=== PATIENT | male | born 1975 | race Caucasian/White ===

== ENCOUNTER 2018-12-08 10:41 | Inpatient (IN) | payer MEDICAID, SELFPAY ==
[2018-12-08 10:46] VITALS: BP 166/91; PULSE 73; RESP 20; TEMP 36.5; O2SAT 99
--- NOTE | 2018-12-08 11:19 | ED.GENADUL_ITS ---
Discharge Plan Disposition Patient Disposition: [facility] INPATIENT Condition: Stable Discharge Details Chief Complaint: Abd Prob Clinical Impression: Acute pancreatitis Admit Date/Time: 12/08/18 14:43 Admit Provider: Bernardo Morejon Attending Provider: Bernardo Morejon Primary Care Provider: Kaushal Schmidt ED Provider: Olga Hart Discharge Data Discharge Date/Time-TO BE ENTERED AT DEPARTURE: 12/08/18 15:48 Medical Decision Making 1120 -- 43-year-old male w/ a history of diabetes who presents with vomiting twice this week, one episode with bright red blood, dark brown stools, and diffuse abdominal pain worse in the epigastrium for the past few days. Smokes marijuana daily. Denies alcohol use. Does not check his sugar at home. Vitals within normal limits. Afebrile. Patient appears nontoxic. He has diffuse mild abdominal tenderness, worse in epigastrium. As patient only vomited blood once this week several days ago, I am not concerned about a significant acute GI bleed. His rectal exam noted brown stool that was Hemoccult negative. Differential diagnosis includes gastritis, GERD, peptic ulcer disease, pancreatitis, cholecystitis, biliary colic. Will place an IV, bolus IV fluids, labs, urinalysis and give a GI cocktail and Pepcid and reassess. Will hold on imaging at this time until reassessment and lab results. 1220 -- Delay in pt receiving meds - busy in ED - nurse will give meds now. Labs reviewed and note normal white blood cell count, electrolytes. Glucose 192. Normal bicarb and anion gap. Lipase 605. Urinalysis notes small blood but no obvious infection. Due to elevated lipase, will obtain a CT abdomen/pelvis to rule out pancreatitis. We will also obtain a limited abdominal ultrasound to assess for cholecystitis. 1415 -- imaging reviewed and unremarkable. Due to elevated lipase, will admit overnight for recheck of lipase, fluids and pain meds if needed. Patient is agreeable to admission. 1420 -- d/w hospitalist - accepts pt for admission. Medical Records Medical records reviewed: Yes I reviewed the patient's medical records. Lab Data Laboratory Tests Range/Units 12/08/18 12/08/18 12/08/18 11:10 11:10 11:24 WBC (4.4-10.8) k/cumm 8.12 RBC (4.50-6.00) m/cumm 4.93 Hgb (13.5-17.5) g/dL 14.4 Hct (40.0-50.0) % 41.4 MCV (80-95) fL 84.0 MCH (27.0-33.0) pg 29.2 MCHC (32.0-36.0) g/dL 34.8 RDW (11.8-14.1) % 12.7 Plt Count (130-400) x1000/uL 254 MPV (8.0-11.0) fL 9.9 Immature Gran % 0.2 Neutrophils % 57.2 Lymphocytes % 33.3 Monocytes % 8.1 Eosinophils % 0.7 Basophils % 0.5 Absolute Neutrophils (1.2-6.7) k/cumm 4.64 Absolute Lymphocytes (1.2-3.4) k/cumm 2.70 Absolute Monocytes (0.11-0.7) k/cumm 0.66 Absolute Eosinophils (0.0-0.7) k/cumm 0.06 Absolute Basophils (0.0-0.2) k/cumm 0.04 Sodium (136-145) mmol/L 139 Potassium (3.5-5.1) mmol/L 4.6 Chloride (98-107) mmol/L 102 Carbon Dioxide (21.0-32.0) mmol/L 27.8 Anion Gap (3-11) mmol/L 9.2 BUN (7-18) mg/dL 22 H Creatinine (0.70-1.30) mg/dL 1.03 Estimated GFR/1.73 m2 (mL/min/1.73m2) >= 60.00 Glucose (70-100) mg/dL 192 H Calcium (8.5-10.1) mg/dL 9.3 Total Bilirubin (0.2-1.0) mg/dL 0.3 AST (15-37) U/L 30 ALT (12-78) U/L 42 Alkaline Phosphatase (46-116) U/L 85 Total Protein (6.4-8.2) g/dL 7.6 Albumin (3.4-5.0) g/dL 3.9 Lipase (73-393) U/L 605 H Urine Color (Yellow) Yellow Urine Clarity Clear Urine pH (5-8) 5.5 Ur Specific [place] (1.005-1.025) 1.020 Urine Protein (Negative) mg/dL 30 H Urine Ketones (Negative) mg/dL Negative Urine Blood (Negative) Small H Urine Nitrite (Negative) Negative Urine Bilirubin (Negative) Negative Urine Urobilinogen (Up TO 0.2) EU/dL 0.2 Ur Leukocyte Esterase (Negative) Negative Urine RBC (0-2) 0-2 Urine WBC (0-5) HPF Negative Ur Epithelial Cells (Negative) HPF Negative Urine Crystals (Negative) HPF Negative Urine Bacteria (Negative) HPF Rare Urine Casts (Negative) LPF Negative Urine Mucus (Negative) Negative Ur Culture Indicated? No Urine Glucose (Negative) mg/dL Negative HPI General Mode of arrival: ambulatory . Date/Time Provider Initiated Documentation: 12/08/18 10:46 . Limitations to Documentation: no limitations . Information obtained by: patient . HPI Narrative: Patient is a 43-year-old male with history of diabetes who presents with 2 episodes of vomiting this week. He states the first episode a few days ago was vomitus mixed with bright red blood with some clots. He states he then vomited again 2 days later which was 2 days ago and there was no blood. He admits to intermittent loose brown and dark colored stools but states he is unsure if they are dark brown or black. He admits to cold sweats occasionally over the past few days. He also admits to intermittent and worse in the epigastrium sharp and stabbing pain but denies any pain at present. He admits to nausea and decreased appetite. He denies any blood in his stool. He states he traveled to [place] 6 weeks ago but denies any known sick contacts recent antibiotics or recent surgeries. He smokes marijuana daily but does not smoke cigarettes. He denies any alcohol use. He states he takes metformin and glipizide but does not check his sugar regularly. Related Data Home Medications Medication Instructions Recorded Confirmed glipizide 10 mg PO DAILY 07/12/14 12/08/18 metformin [Glucophage] 1,000 mg PO BID 07/12/14 12/26/16 insulin glargine [Lantus Solostar] 10 units SUB-Q HS 12/26/16 12/08/18 Allergies Allergy/AdvReac Type Severity Reaction Status Date / Time No Known Allergies Allergy Unverified 12/26/16 21:53 General Stated Complaint: Abd Prob MARYURI: 3 Review of Systems Review of Systems All systems reviewed & are unremarkable except as noted in HPI and below Constitutional Reports as per HPI, Denies chills and Denies fever(s) Eyes Denies blurry vision ENT Denies dizziness, Denies sore throat and Denies throat swelling Cardiovascular Denies chest pain and Denies dyspnea Respiratory Denies cough and Denies dyspnea Gastrointestinal Reports abdominal pain, Denies diarrhea and Reports vomiting Genitourinary Denies hematuria and Denies dysuria Musculoskeletal Denies back pain and Denies numbness Integumentary/Breasts Denies lesions and Denies rash Neurologic Denies dizziness, Denies focal weakness and Denies numbness Allergic/Immunologic Denies throat swelling PFSH Medical History Diabetes (Chronic) Surgical History History of dental surgery (Acute) H/O elbow surgery (Acute) Social History Smoking/Tobacco Use Status: Never Alcohol Intake: never Drug use: Daily Substance use type: marijuana Do you feel safe at home: Yes Do you feel safe in your relationship?: Yes Exam Const General: cooperative, healthy appearing and no acute distress HENMT Head: normal to inspection Face and sinus: normal facial exam Eyes General: appearance normal, both eyes and all related structures EOM: EOM intact bilaterally Neck Neck: normal visual inspection and No submandibular swelling Lymphatic: no lymphadenopathy noted Chest Chest: normal inspection of the chest and no tenderness Resp Effort & Inspection: normal respiratory effort and able to speak in complete sentences Auscultation: clear to auscultation bilaterally Cardio Rate: regular rate Rhythm: regular rhythm GI Inspection: normal to inspection Palpation: soft, not firm, not rigid and nontender Auscultation: normal bowel sounds Rectal Exam: visual inspection normal, normal sphincter tone and heme negative stool (stool brown in color) Skin General skin exam: no rashes or lesions noted Neuro General: alert, awake and oriented x3 Cognition: normal cognition Speech: speech normal Motor: muscle tone normal throughout Sensory Exam: no sensory deficits noted Extrem General: normal to inspection, full ROM and no edema Psych Appearance: grossly normal Mental Status: mental status grossly normal Speech and Movement: speech and movement normal Affect: normal affect Course Vital Signs Temperature 97.7 F 12/08/18 10:46 Pulse 73 12/08/18 10:46 Respiratory Rate 20 12/08/18 10:46 Blood Pressure 166/91 H 12/08/18 10:46 Pulse Oximetry 99 12/08/18 10:46 Temperature 97.7 F 12/08/18 10:46 Pulse 73 12/08/18 10:46 Respiratory Rate 20 12/08/18 10:46 Respiratory Effort Non-Labored 12/08/18 10:52 Blood Pressure 166/91 H 12/08/18 10:46 Blood Pressure Position Supine 12/08/18 10:46 Pulse Oximetry 99 12/08/18 10:46 Oxygen Delivery Method Room Air 12/08/18 10:46 Oxygen Flow Rate 0 12/08/18 10:46 Pain Level 2 12/08/18 10:46
[2018-12-08 11:53] LABS: Bilirubin Negative (Negative); Blood Small (Negative); Clarity Clear; Glucose Negative (Negative); Ketones Negative (Negative); Leukocyte Esterase Negative (Negative); Nitrite Negative (Negative); Urobilinogen 0.2 EU/dL (Up TO 0.2); pH 5.5 (5-8)
[2018-12-08 11:58] LABS: Abs Immature Grans 0.02 k/cumm (0.0-0.09); Absolute Basophil Count 0.04 k/cumm (0.0-0.2); Absolute Eosinophil Count 0.06 k/cumm (0.0-0.7); Absolute Monocyte Count 0.66 k/cumm (0.11-0.7); Absolute Neutrophil Count 4.64 k/cumm (1.2-6.7); Basophils % 0.5; Eosinophils % 0.7; HCT 41.4 % (40.0-50.0); HGB 14.4 g/dL (13.5-17.5); Immature Grans % 0.2; Lymphocytes % 33.3; Mean Corp. HGB Concentration 34.8 g/dL (32.0-36.0); Mean Corpuscular Hemoglobin 29.2 pg (27.0-33.0); Mean Platelet Volume 9.9 fL (8.0-11.0); Monocytes % 8.1; Neutrophils % 57.2; Platelet Count 254 x1000/uL (130-400); RBC 4.93 m/cumm (4.50-6.00); RBC Distribution Width 12.7 % (11.8-14.1); White Blood Cell Count 8.12 k/cumm (4.4-10.8)
[2018-12-08 12:08] LABS: Bacteria Rare HPF (Negative); C & S Indicated? No; Casts Negative LPF (Negative); Crystals Negative HPF (Negative); Epithelial Cells Negative HPF (Negative); Mucus Negative (Negative); RBC 0-2 (0-2); WBC Negative HPF (0-5)
[2018-12-08 12:19] LABS: ALT 42 U/L (12-78); AST 30 U/L (15-37); Albumin 3.9 g/dL (3.4-5.0); Alkaline Phosphatase 85 U/L (46-116); Anion Gap 9.2 mmol/L (3-11); BUN 22 mg/dL (7-18); Bilirubin, Total 0.3 mg/dL (0.2-1.0); CO2 27.8 mmol/L (21.0-32.0); CREATININE 1.03 mg/dL (0.70-1.30); Calcium 9.3 mg/dL (8.5-10.1); Chloride 102 mmol/L (98-107); Glucose 192 mg/dL (70-100); Lipase 605 U/L (73-393); Potassium 4.6 mmol/L (3.5-5.1); Sodium 139 mmol/L (136-145); Total Protein 7.6 g/dL (6.4-8.2)
--- NOTE | 2018-12-08 12:21 | DI.US_ITS ---
SYMPTOMS/DIAGNOSIS: RIGHT UPPER QUADRANT TENDERNESS, ? CHOLECYSTITIS LIMITED ABDOMINAL ULTRASOUND: The gallbladder is normal. There is no evidence of gallstones. There is no evidence of ductal dilatation. The head of the pancreas appears intact. The body and tail are not seen. SUMMARY: There is no evidence of gallstones or biliary dilatation. The head of the pancreas is acoustically normal and there is no evidence of free fluid.
--- NOTE | 2018-12-08 12:21 | DI.CT_ITS ---
SYMPTOM/DIAGNOSIS: EPIGASTRIC PAIN, ELEVATED LIPASE, ? PANCREATITIS ABDOMEN AND PELVIC CT: A CT examination of the abdomen and pelvis was performed following the intravenous infusion of 84 cc's of Omnipaque 350 and the ingestion of oral contrast. The liver and spleen are normal in size and shape with no evidence of any focal defects. There is no evidence of biliary dilatation. The gallbladder has a normal CT appearance. The pancreas appears intact and is not enlarged. There is no evidence of retroperitoneal lymphadenopathy. The bladder appears intact. The kidneys show bilateral function and there is no evidence of a renal mass. The vascular structures appear intact. There is no evidence of a mass in the pelvis. There is no evidence of a fluid collection or adenopathy. CONCLUSION: Normal abdominal and pelvic CT.
[2018-12-08] MEDS: Normal Saline 1,000 ML 1000 ML IV ×2 (12:37→15:44)
[2018-12-08] MEDS: FAMOTIDINE 20 MG/50 ML BAG 200 MG IVPB (12:37)
[2018-12-08 12:42] VITALS: BP 144/86; PULSE 67; RESP 18; TEMP 36.5; O2SAT 100
--- NOTE | 2018-12-08 13:15 | NUR.NOTE ---
Nursing Note: Pt off unit to CT. no acute changes, will continue to monitor.
[2018-12-08] MEDS: Omnipaque 350 MG/ML 100 ML BTL IJ (13:28)
[2018-12-08 14:25] VITALS: BP 159/79; PULSE 86; RESP 18; TEMP 36.7; O2SAT 98
[2018-12-08] MEDS: Normal Saline 1,000 ML 200 ML IV ×2 (16:25→21:25)
--- NOTE | 2018-12-08 16:50 | HPE_ITS ---
Date of service: 12/08/18 Time of Service: 16:41 Assessment and Plan (1) Pancreatitis: Current visit: Yes Status: Chronic Versus gastritis. Lipase elevated to 605. Abdominal CT not read by radiology yet. Abdominal ultrasound does not show evidence of gallstones or biliary dilatation. The head of the pancreas is acoustically normal and there is no evidence of free fluid. He has mild epigastric discomfort. He reported that he may have a history of hyperlipidemia, review of the record does not show history of high triglycerides. Assess lipid panel in the morning. Initiate PPI for possible gastritis. Reassess lipase in the morning. We will allow clear liquids as tolerated as he is asking for something to eat. Avoid opiates as his pain is mild. (2) Diabetes: Current visit: Yes Status: Chronic No recent Hgb A1c on his chart, has been high in the past (most recent- 9. 2 in 2014). Assess Hgb A1c in the morning. Monitor blood glucose before meals, cover with sliding scale. (3) DVT prophylaxis: Current visit: Yes Status: Acute Hold chemical DVT prophylaxis in this 43-year-old ambulatory man. If he is not discharged within the next 24 hours, consider adding chemical DVT prophylaxis. This case was discussed with Dr. Morejon who is in agreement. History of Present Illness Chief Complaint: Epigastric pain Narrative: Aldo is a 43-year-old man with a history of type 2 diabetes, insulin-dependent, who presented to the emergency department today with reports of vomiting twice in the last week. One week ago he vomited and noticed there was blood in his vomit as well as clots. He also reported dark stools and increasing epigastric discomfort as well as GERD. In the emergency department, his labs revealed a normal white blood cell count, electrolyte are within normal limits, his glucose is elevated at 192, his lipase was elevated at 605, urinalysis was not suspicious for infection. He had an abdominal CT which is not yet been read. He had an abdominal ultrasound which did not show gallstones or biliary dilatation. He is admitted to the [facility] floor for acute pancreatitis. Upon presenting to the [facility] floor, he is asking for something to eat. We discussed how oral intake increases pain with pancreatitis and that if he had increased pain he would have to stop taking in anything orally. He was agreeable to this plan. He will receive a trial of clear liquids as tolerated. Review of system was positive as above for vomiting with blood noted in his emesis 1 week ago, he believes he had dark stools, he does endorse epigastric discomfort today, he has been having heartburn recently, he also reports a chronic cough. He denies any dizziness, shortness of breath, wheezing, chest pain/pressure, palpitations, nausea, vomiting today, or diarrhea. He reports that he has been able to eat up until his admission to the hospital. He reports occasional leg cramps at night, no current leg cramps. Review of Systems Review of Systems All systems reviewed & are unremarkable except as noted in HPI and below PFSH Medical History Diabetes (Chronic) Surgical History History of dental surgery (Acute) H/O elbow surgery (Acute) Social History Smoking/Tobacco Use Status: Never Alcohol Intake: never Drug use: Daily Substance use type: marijuana Do you feel safe at home: Yes Do you feel safe in your relationship?: Yes Meds Home Medications Medication Instructions Recorded Confirmed Type glipizide 10 mg PO DAILY 07/12/14 12/08/18 History metformin [Glucophage] 1,000 mg PO BID 07/12/14 12/26/16 History insulin glargine [Lantus Solostar] 10 units SUB-Q HS 12/26/16 12/08/18 History Allergies Allergy/AdvReac Type Severity Reaction Status Date / Time No Known Allergies Allergy Unverified 12/26/16 21:53 Exam Narrative Exam Narrative: General: Well-appearing 43-year-old man, sitting up at the edge of the bed, in no acute distress, conversant, answering questions appropriately. HEENT: Normocephalic, atraumatic, mucous membranes moist. Neck: Supple, no JVD. Respiratory: Respirations even and unlabored, lung sounds clear to auscultation throughout. Cardiovascular: Heart has regular rate and rhythm, no murmur appreciated. Gastrointestinal: Normoactive bowel sounds, mild tenderness to epigastric region and left upper abdomen on palpation. Abdomen is nondistended. Extremities: Well perfused, no clubbing, cyanosis or edema. Results Labs : 12/08/18 11:10 12/08/18 11:10 Laboratory Results - last 24 hr 12/08/18 12/08/18 12/08/18 11:10 11:10 11:24 WBC 8.12 RBC 4.93 Hgb 14.4 Hct 41.4 MCV 84.0 MCH 29.2 MCHC 34.8 RDW 12.7 Plt Count 254 MPV 9.9 Immature Gran % 0.2 Neutrophils % 57.2 Lymphocytes % 33.3 Monocytes % 8.1 Eosinophils % 0.7 Basophils % 0.5 Absolute Neutrophils 4.64 Absolute Lymphocytes 2.70 Absolute Monocytes 0.66 Absolute Eosinophils 0.06 Absolute Basophils 0.04 Sodium 139 Potassium 4.6 Chloride 102 Carbon Dioxide 27.8 Anion Gap 9.2 BUN 22 H Creatinine 1.03 Estimated GFR/1.73 m2 >= 60.00 Glucose 192 H Calcium 9.3 Total Bilirubin 0.3 AST 30 ALT 42 Alkaline Phosphatase 85 Total Protein 7.6 Albumin 3.9 Lipase 605 H Urine Color Yellow Urine Clarity Clear Urine pH 5.5 Ur Specific [place] 1.020 Urine Protein 30 H Urine Ketones Negative Urine Blood Small H Urine Nitrite Negative Urine Bilirubin Negative Urine Urobilinogen 0.2 Ur Leukocyte Esterase Negative Urine RBC 0-2 Urine WBC Negative Ur Epithelial Cells Negative Urine Crystals Negative Urine Bacteria Rare Urine Casts Negative Urine Mucus Negative Ur Culture Indicated? No Urine Glucose Negative Last Vital Signs Temp 36.7 C 12/08/18 14:25 Pulse 86 12/08/18 14:25 Resp 18 12/08/18 14:25 BP 159/79 H 12/08/18 14:25 Pulse Ox 98 12/08/18 14:25
[2018-12-08 16:52] VITALS: BP 163/99; PULSE 81; RESP 19; TEMP 36.1; O2SAT 98
[2018-12-08] MEDS: Normal Saline Flush 10 ML SYR IVP (20:07)
[2018-12-08] MEDS: Insulin Aspart 300 UNITS/3 ML PEN SC (21:31)
[2018-12-09 00:04] VITALS: BP 150/82; PULSE 92; RESP 18; TEMP 36.5; O2SAT 99
[2018-12-09] MEDS: Normal Saline 1,000 ML 200 ML IV ×5 (02:03→23:21)
[2018-12-09 03:20] VITALS: BP 137/87; PULSE 72; RESP 16; TEMP 36.9; O2SAT 100
[2018-12-09 07:03] LABS: HCT 37.3 % (40.0-50.0); HGB 12.9 g/dL (13.5-17.5); Mean Corp. HGB Concentration 34.6 g/dL (32.0-36.0); Mean Corpuscular Hemoglobin 29.2 pg (27.0-33.0); Mean Corpuscular Volume 84.4 fL (80-95); Mean Platelet Volume 9.7 fL (8.0-11.0); Platelet Count 231 x1000/uL (130-400); RBC 4.42 m/cumm (4.50-6.00); RBC Distribution Width 12.5 % (11.8-14.1); White Blood Cell Count 6.16 k/cumm (4.4-10.8)
[2018-12-09 07:27] LABS: ALT 32 U/L (12-78); AST 21 U/L (15-37); Albumin 2.9 g/dL (3.4-5.0); Alkaline Phosphatase 69 U/L (46-116); Anion Gap 5.6 mmol/L (3-11); BUN 10 mg/dL (7-18); Bilirubin, Total 0.5 mg/dL (0.2-1.0); CO2 29.4 mmol/L (21.0-32.0); CREATININE 0.91 mg/dL (0.70-1.30); Calcium 7.9 mg/dL (8.5-10.1); Chloride 107 mmol/L (98-107); Cholesterol 133 mg/dL (50-200); Glucose 178 mg/dL (70-100); HDL Cholesterol 33 mg/dL (40-60); LDL CHOLESTEROL 83 mg/dL (<100); Potassium 4.2 mmol/L (3.5-5.1); Sodium 142 mmol/L (136-145); Total Protein 5.8 g/dL (6.4-8.2); Triglyceride 140 mg/dL (30-150)
[2018-12-09 07:40] VITALS: BP 145/87; PULSE 79; RESP 18; TEMP 36.4; O2SAT 99
[2018-12-09 07:43] LABS: Hemoglobin A1C 7.6 % (4.5-6.2)
[2018-12-09 07:57] LABS: Lipase 2832 U/L (73-393)
[2018-12-09] MEDS: Normal Saline Flush 10 ML SYR IVP (08:47)
[2018-12-09] MEDS: Insulin Aspart 300 UNITS/3 ML PEN SC ×3 (08:48→23:20)
[2018-12-09] MEDS: Acetaminophen 325 MG TAB PO (08:57)
--- NOTE | 2018-12-09 10:26 | PHARADMIT ---
Addendum entered by Leda Tobar 12/12/18 15:13: Pharmacy Note Subjective HIDA scan today Objective BP-154/91 other VS okay K+3.3 mag-1.6 lipase improved Assessment insulin glargine dose decreased (pt. NPO after midnight) lisinopril ordered to start tomorrow, 2.5 mg daily glipizide discontinued due to pancreatitis mag and K+ replacement given Plan EGD tomorrow Addendum entered by Ramona Zepeda 12/11/18 12:22: Pharmacy Note Subjective wants to go home, one episode of nausea overnight Objective BP 188/96, Afebrile, Mid/left sided back pain 10/16 BG 161 Assessment lytes good but borderline K+ and Mag no insulin adjustments APAP & Ketorolac for pain not tracking lipase Plan clear liquid diet, surgery consult for Wednesday w/HIDA scan Original Note: Admission Pharmacy Clinical Review ACUTE PANCREATITIS Code Status Full Code Current Weight Wgt-59 kg Renally Cleared and Narrow Therapeutic Index Meds CrCl~84 mL/min Meds-OK QTc Value / Action Taken QTc-455 (in 09/2018) Pepcid, Nexium BP Control, Fever BP-145/87 Tmax- 36.4C Electrolytes reviewed Na- 142 K+4.2 DVT Prophylaxis None (? Surgery) Opiate Usage / Scheduled Bowel Regimen Ordered No Yes Plt/SCr for Heparin / Enoxaparin Plts-231 SCr- 0.91 INR for Warfarin na H/H stable, WBC/Bands H&H- 12.9/37.3 WBC- 6.16 Antibiotic appropriateness none Cultures and Sensitivities none Surgical ABX d/c within 24 hr NA DM control / Insulin Dosing BG-178 HgA1c- 7.6 Aspart Heart Failure (Check EF%) (MAGALI's, B-Block, Diuretics) none IV to PO Switch No Home Meds Reviewed Yes Home Meds Not Ordered Metformin, Glipizide, Lantus Comments Lipase-2,832
--- NOTE | 2018-12-09 11:19 | PDOC.CMIN ---
- If Service Date Differs Date of service: 12/09/18 (\) Time of Service: 11:19 Care Management Initial Assess REASON FOR HOSPITALIZATION:: Pancreatitis PAST MEDICAL HISTORY/PAST SURGICAL HISTORY:: DM PREVIOUS FUNCTIONAL STATUS/SOCIAL/FAMILY SUPPORTS:: Aldo lives in [place], [place] with his SO Janelle and his son Shoaib velasco. 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 He has two other children that are grown. Shoaib is a DM he states he does not manage his DM well and he does not check his blood sugar. CURRENT FUNCTIONAL STATUS:: Shoaib is sitting up on the side of the bed he is engaged during assessment. He states that he does not control his blood sugar well. He states that he would like be able to gain weight and muscle. He feels that he is not strong like he has been in the past and is asking if she take steroids to bulk up. CM provided education r/t risk of steroid use and DM management including risk of elevated blood sugar and risk of microvascular damage. Shoaib has no interest in applying for insurance at this time. He states he is not applying for any assistance through the state that he makes to much money. ADVANCE DIRECTIVES:: None on file Has patient been provided with information about the portal?: Yes Did the patient sign up for the portal?: No CODE STATUS:: Full Code INSURANCE COVERAGE / FINANCIAL ISSUES:: Self Pay declines completing applicaiton for insurance and does not want to apply for finanical assistance. CURRENT HOME/COMMUNITY SERVICES/EQUIPMENT:: None at this time PRIMARY CARE PHYSICIAN:: POTENTIAL DISCHARGE NEEDS:: Follow up appointment with primary care and DM educator PATIENT/FAMILY EDUCATION NEEDS:: Discharge education, limitations and follow up plan of care including ask me three. CM provided extensive education DM management and treatment. Patient states this is the year he will begin to take care of himself. ANTICIPATED BARRIERS TO DISCHARGE:: None identified TRANSPORTATION:: Via private car with spouse. PLAN:: Shoaib is currently receiving fluids, he is tolerating clear liquids. He will likely be discharged home over the weekend with no anticipated services.
[2018-12-09 11:40] VITALS: BP 106/82; PULSE 72; RESP 18; TEMP 36.5; O2SAT 98
--- NOTE | 2018-12-09 12:04 | INITIAL_ITS ---
- If Service Date Differs Date of service: 12/09/18 (\) Time of Service: 11:19 Care Management Initial Assess REASON FOR HOSPITALIZATION:: Pancreatitis PAST MEDICAL HISTORY/PAST SURGICAL HISTORY:: DM PREVIOUS FUNCTIONAL STATUS/SOCIAL/FAMILY SUPPORTS:: Aldo lives in [place], [place] with his SO Janelle and his son Shoaib velasco. 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 He has two other children that are grown. Shoaib is a DM he states he does not manage his DM well and he does not check his blood sugar. CURRENT FUNCTIONAL STATUS:: Shoaib is sitting up on the side of the bed he is engaged during assessment. He states that he does not control his blood sugar well. He states that he would like be able to gain weight and muscle. He feels that he is not strong like he has been in the past and is asking if she take steroids to bulk up. CM provided education r/t risk of steroid use and DM management including risk of elevated blood sugar and risk of microvascular damage. Shoaib has no interest in applying for insurance at this time. He states he is not applying for any assistance through the state that he makes to much money. ADVANCE DIRECTIVES:: None on file Has patient been provided with information about the portal?: Yes Did the patient sign up for the portal?: No CODE STATUS:: Full Code INSURANCE COVERAGE / FINANCIAL ISSUES:: Self Pay declines completing applicaiton for insurance and does not want to apply for finanical assistance. CURRENT HOME/COMMUNITY SERVICES/EQUIPMENT:: None at this time PRIMARY CARE PHYSICIAN:: POTENTIAL DISCHARGE NEEDS:: Follow up appointment with primary care and DM educator PATIENT/FAMILY EDUCATION NEEDS:: Discharge education, limitations and follow up plan of care including ask me three. CM provided extensive education DM management and treatment. Patient states this is the year he will begin to take care of himself. ANTICIPATED BARRIERS TO DISCHARGE:: None identified TRANSPORTATION:: Via private car with spouse. PLAN:: Shoaib is currently receiving fluids, he is tolerating clear liquids. He will likely be discharged home over the weekend with no anticipated services.
--- NOTE | 2018-12-09 14:40 | W.PM.PROGNOT ---
Date of Service Date of service: 12/09/18 Time of Service: 14:41 Assessment and Plan (1) Pancreatitis: Current visit: Yes Status: Chronic Lipase is up today to 2832, from 605 on admission. He continues to have abdominal pain. Abdominal ultrasound does not show evidence of gallstones or biliary dilatation. The head of the pancreas is acoustically normal and there is no evidence of free fluid. CT abdomen and pelvis normal, the pancreas appeared intact and not enlarged. He is tolerating clear liquids, continue clear liquid diet. Continue PPI, pain control, IV fluids. (2) Diabetes: Current visit: Yes Status: Chronic His hemoglobin A1c is 7.6. We will resume Lantus at decreased dose as he is taking clear liquids. Continue to monitor blood glucose at before meals and at bedtime, continue aspart per sliding scale. He did have a low blood sugar overnight, continue on sensitive scale. Continue glipizide. Hold metformin while hospitalized. (3) Anxiety: Current visit: Yes Status: Chronic PRN Ativan for anxiety while in the hospital. Melatonin at bedtime. (4) DVT prophylaxis: Current visit: Yes Status: Acute Hold chemical DVT prophylaxis in this 43-year-old ambulatory man. If he is not discharged within the next 24 hours, consider adding chemical DVT prophylaxis. This case was discussed with Dr. Morejon who is in agreement. Subjective Interval history since last seen: Shoaib continues to have mid epigastric pain that extends to the left side of his abdomen and through to his back. He does not necessarily feel nauseated at the present time, he has not vomited, he did have a small bowel movement today. He is taking clear liquids, he has not had an increase in pain with clear liquids, he feels like his pain is about the same. He is not ready to advance his diet. He feels anxious at times, he feels that this is related to not having his regular marijuana intake. He did not sleep well last night. He denies dizziness, shortness of breath, wheezing, chest pain/pressure, palpitations, no diarrhea. Exam Narrative Exam Narrative: General: Well-appearing 43-year-old man, sitting up at the edge of the bed, in no acute distress, conversant, answering questions appropriately. HEENT: Normocephalic, atraumatic, mucous membranes moist. Pupils equal and round Neck: Supple, no JVD. Respiratory: Respirations even and unlabored, lung sounds with few scattered wheezes bilaterally. Cardiovascular: Heart has regular rate and rhythm, no murmur appreciated. Gastrointestinal: Normoactive bowel sounds, mild tenderness to epigastric region and left upper abdomen on palpation. Abdomen is nondistended. Extremities: Well perfused, no clubbing, cyanosis or edema. Objective Objective Clinical Data: Abnormal lab results 12/09/18 12/09/18 12/09/18 Range/Units 06:34 06:34 06:34 RBC 4.42 L (4.50-6.00) m/cumm Hgb 12.9 L (13.5-17.5) g/dL Hct 37.3 L (40.0-50.0) % Glucose 178 H (70-100) mg/dL Hemoglobin A1c 7.6 H (4.5-6.2) % Calcium 7.9 L (8.5-10.1) mg/dL Total Protein 5.8 L (6.4-8.2) g/dL Albumin 2.9 L (3.4-5.0) g/dL HDL Cholesterol 33 L (40-60) mg/dL Lipase 2832 H (73-393) U/L Vital Signs Temperature 36.5 C 12/09/18 11:40 Temperature Source Tympanic 12/09/18 11:40 Pulse 72 12/09/18 11:40 Pulse Rhythm Regular 12/09/18 13:43 Respiratory Rate 18 12/09/18 11:40 Respiratory Effort 12/09/18 13:43 Respiratory Depth Normal 12/09/18 13:43 Respiratory Pattern Normal 12/09/18 13:43 Blood Pressure 106/82 12/09/18 11:40 Blood Pressure Position Supine 12/08/18 10:46 Pulse Oximetry 98 12/09/18 11:40 Oxygen Delivery Method Room Air 12/09/18 11:40 Oxygen Flow Rate 0 12/09/18 11:40 Pain Level 7 12/09/18 08:57 Comment 12/09/18 03:20 Intake & Output 12/08/18 12/09/18 12/09/18 23:59 11:59 23:59 Intake Total 3260 / 3260 3516.667 / 3516.667 Output Total 1100 / 1100 Balance 3260 / 3260 2416.667 / 2416.667 Weight 59 kg Intake: IV 3050 / 3050 2896.667 / 2896.667 Oral 210 / 210 620 / 620 Output: Urine 1100 / 1100 Other: Urine Color Yellow Urine Appearance Clear Clear Clear Urine Odor Normal Comment pt stated he voided 800 ml in the hat and dumped it. Pt stated the color was normal yellow with no bad smell. Pt was asked to notify staff when he voided agian before dumping it. Voiding Methods Toilet Laboratory Results WBC 6.16 k/cumm (4.4-10.8) 12/09/18 06:34 RBC 4.42 m/cumm (4.50-6.00) L 12/09/18 06:34 Hgb 12.9 g/dL (13.5-17.5) L 12/09/18 06:34 Hct 37.3 % (40.0-50.0) L 12/09/18 06:34 MCV 84.4 fL (80-95) 12/09/18 06:34 MCH 29.2 pg (27.0-33.0) 12/09/18 06:34 MCHC 34.6 g/dL (32.0-36.0) 12/09/18 06:34 RDW 12.5 % (11.8-14.1) 12/09/18 06:34 Plt Count 231 x1000/uL (130-400) 12/09/18 06:34 MPV 9.7 fL (8.0-11.0) 12/09/18 06:34 Immature Gran % 0.2 12/08/18 11:10 Neutrophils % 57.2 12/08/18 11:10 Lymphocytes % 33.3 12/08/18 11:10 Monocytes % 8.1 12/08/18 11:10 Eosinophils % 0.7 12/08/18 11:10 Basophils % 0.5 12/08/18 11:10 Absolute Neutrophils 4.64 k/cumm (1.2-6.7) 12/08/18 11:10 Absolute Lymphocytes 2.70 k/cumm (1.2-3.4) 12/08/18 11:10 Absolute Monocytes 0.66 k/cumm (0.11-0.7) 12/08/18 11:10 Absolute Eosinophils 0.06 k/cumm (0.0-0.7) 12/08/18 11:10 Absolute Basophils 0.04 k/cumm (0.0-0.2) 12/08/18 11:10 Sodium 142 mmol/L (136-145) 12/09/18 06:34 Potassium 4.2 mmol/L (3.5-5.1) 12/09/18 06:34 Chloride 107 mmol/L (98-107) 12/09/18 06:34 Carbon Dioxide 29.4 mmol/L (21.0-32.0) 12/09/18 06:34 Anion Gap 5.6 mmol/L (3-11) 12/09/18 06:34 BUN 10 mg/dL (7-18) D 12/09/18 06:34 Creatinine 0.91 mg/dL (0.70-1.30) 12/09/18 06:34 Estimated GFR/1.73 m2 >= 60.00 (mL/min/1.73m2) 12/09/18 06:34 Glucose 178 mg/dL (70-100) H 12/09/18 06:34 Hemoglobin A1c 7.6 % (4.5-6.2) H 12/09/18 06:34 Calcium 7.9 mg/dL (8.5-10.1) L 12/09/18 06:34 Total Bilirubin 0.5 mg/dL (0.2-1.0) 12/09/18 06:34 AST 21 U/L (15-37) 12/09/18 06:34 ALT 32 U/L (12-78) 12/09/18 06:34 Alkaline Phosphatase 69 U/L (46-116) 12/09/18 06:34 Total Protein 5.8 g/dL (6.4-8.2) L 12/09/18 06:34 Albumin 2.9 g/dL (3.4-5.0) L 12/09/18 06:34 Triglycerides 140 mg/dL (30-150) 12/09/18 06:34 Total Cholesterol 133 mg/dL (50-200) 12/09/18 06:34 LDL Cholesterol Direct 83 mg/dL (<100) 12/09/18 06:34 HDL Cholesterol 33 mg/dL (40-60) L 12/09/18 06:34 Lipase 2832 U/L (73-393) H 12/09/18 06:34 Urine Color Yellow (Yellow) 12/08/18 11:24 Urine Clarity Clear 12/08/18 11:24 Urine pH 5.5 (5-8) 12/08/18 11:24 Ur Specific [place] 1.020 (1.005-1.025) 12/08/18 11:24 Urine Protein 30 mg/dL (Negative) H 12/08/18 11:24 Urine Ketones Negative mg/dL (Negative) 12/08/18 11:24 Urine Blood Small (Negative) H 12/08/18 11:24 Urine Nitrite Negative (Negative) 12/08/18 11:24 Urine Bilirubin Negative (Negative) 12/08/18 11:24 Urine Urobilinogen 0.2 EU/dL (Up TO 0.2) 12/08/18 11:24 Ur Leukocyte Esterase Negative (Negative) 12/08/18 11:24 Urine RBC 0-2 (0-2) 12/08/18 11:24 Urine WBC Negative HPF (0-5) 12/08/18 11:24 Ur Epithelial Cells Negative HPF (Negative) 12/08/18 11:24 Urine Crystals Negative HPF (Negative) 12/08/18 11:24 Urine Bacteria Rare HPF (Negative) 12/08/18 11:24 Urine Casts Negative LPF (Negative) 12/08/18 11:24 Urine Mucus Negative (Negative) 12/08/18 11:24 Ur Culture Indicated? No 12/08/18 11:24 Urine Glucose Negative mg/dL (Negative) 12/08/18 11:24
[2018-12-09] MEDS: LORazepam 0.5 MG TAB PO (14:48)
--- NOTE | 2018-12-09 15:39 | NUR.NOTE ---
Nursing Note: Patient presents with increased anxiety after lunch, contact provider who puts in order for lorazepam, this is given with a positive effect
[2018-12-09 15:58] VITALS: BP 147/80; PULSE 82; RESP 17; TEMP 36.9; O2SAT 97
[2018-12-09 20:36] VITALS: BP 146/80; PULSE 78; RESP 17; TEMP 37; O2SAT 98
[2018-12-09] MEDS: Insulin Glargine 300 UNITS/3 ML PEN 6 UNITS SC (23:19)
[2018-12-10] VITALS (8 sets, daily range): BP systolic 140–170; BP diastolic 72–94; PULSE 62–80; RESP 17–20; TEMP 36–37.1; O2SAT 97–100
[2018-12-10] MEDS: Normal Saline 1,000 ML 200 ML IV ×5 (03:21→23:30)
[2018-12-10] MEDS: glipiZIDE 10 MG TAB PO (09:18)
[2018-12-10] MEDS: Insulin Aspart 300 UNITS/3 ML PEN SC ×3 (09:19→22:14)
[2018-12-10] MEDS: Normal Saline Flush 10 ML SYR IVP ×2 (09:19→19:38)
--- NOTE | 2018-12-10 10:42 | W.INDIABCONS ---
Date of service: 12/10/18 Time of Service: 10:42 Diabetes Inpatient Consult DESCRIPTION/ASSESSMENT: Appreciate diabetes consult for Mr. Martinez who is hospitalized with pancreatitis. BMI 22 A1c 7.6 down from an initial A1c of 11 in 2010. Blood sugars here 60-392 taking 6u glargine and sensitive insulin correction. BLood sugars vary widely in short period of time, and without documentation of carbohydrate intake. His home medication regimen includes 10u glargine once a day; glipizide and metformin. Attempted to visit today but he was unavailable thus unable to assess his home nutrition and medication adherence. INTERVENTION: Mr. Martinez appears exquisitely sensitive to insulin and carbohydrate. Given his normal BMI and apparent lack of insulin resistance, it is possible he has pancreatic insufficiency which may vary. He may eventually benefit from an insulin:carbohydrate addition of 1 unit for 30 grams carbohydrate to better manage blood sugar excursions. However, without understanding his management at home, suggest we follow blood sugars and document all carbohydrate intake. PLAN: Will follow up visit with him. Suggest documenting all carbohydrate intake to understand cause for glycemic swings Time Spent in Nutritional Counseling and Treatment: 0 minutes face to face inpatient
[2018-12-10 11:23] LABS: Abs Immature Grans 0.01 k/cumm (0.0-0.09); Absolute Basophil Count 0.03 k/cumm (0.0-0.2); Absolute Eosinophil Count 0.08 k/cumm (0.0-0.7); Absolute Lymphocyte Count 2.77 k/cumm (1.2-3.4); Absolute Neutrophil Count 3.12 k/cumm (1.2-6.7); Basophils % 0.5; Eosinophils % 1.2; HGB 12.3 g/dL (13.5-17.5); Immature Grans % 0.2; Lymphocytes % 42.5; Mean Corp. HGB Concentration 35.1 g/dL (32.0-36.0); Mean Corpuscular Hemoglobin 29.5 pg (27.0-33.0); Mean Corpuscular Volume 83.9 fL (80-95); Mean Platelet Volume 9.5 fL (8.0-11.0); Monocytes % 7.7; Neutrophils % 47.9; Platelet Count 215 x1000/uL (130-400); RBC 4.17 m/cumm (4.50-6.00); RBC Distribution Width 12.3 % (11.8-14.1); White Blood Cell Count 6.51 k/cumm (4.4-10.8)
[2018-12-10 11:30] LABS: C-Reactive Protein 0.15 mg/dL (0.0-0.3)
[2018-12-10 11:36] LABS: ALT 28 U/L (12-78); AST 22 U/L (15-37); Albumin 3.1 g/dL (3.4-5.0); Alkaline Phosphatase 67 U/L (46-116); Anion Gap 6.5 mmol/L (3-11); BUN 8 mg/dL (7-18); Bilirubin, Direct 0.11 mg/dL (0.00-0.20); Bilirubin, Total 0.4 mg/dL (0.2-1.0); CO2 28.5 mmol/L (21.0-32.0); CREATININE 1.12 mg/dL (0.70-1.30); Chloride 107 mmol/L (98-107); Glucose 153 mg/dL (70-100); Magnesium 1.8 mg/dL (1.8-2.4); Potassium 3.7 mmol/L (3.5-5.1); Sodium 142 mmol/L (136-145)
--- NOTE | 2018-12-10 14:22 | PGE_ITS ---
Date of Service Date of service: 12/10/18 Time of Service: 14:26 Assessment and Plan (1) Pancreatitis: Start date: 12/10/18 Start time: 14:17 Current visit: Yes Status: Chronic Continues to have pain. CRP was 0.15, triglycerides 140, ast [address] scan with no abnormalities and Abd u/s with no abnormalities. Does describe pain after eating, diet changed to soft if pain continues after eating and to RUQ consider HIDA scan, for possible gallbladder dysmotility if pain persists. (2) Diabetes: Start date: 12/10/18 Start time: 14:23 Current visit: Yes Status: Chronic continue lantus, increased diet to soft for dinner, glucose this am was 153, continue to monitor and increase insulin as needed. (3) Anxiety: Start date: 12/10/18 Start time: 14:25 Current visit: Yes Status: Chronic PRN Ativan for anxiety while in the hospital., is anxious to go home, understands the plan and agreeable at this time. Melatonin at bedtime. (4) DVT prophylaxis: Start date: 12/10/18 Start time: 14:25 Current visit: Yes Status: Acute Hold chemical DVT prophylaxis in this 43-year-old ambulatory man. Subjective Patient reports: no new complaints Interval history since last seen: Mr. Martinez is a 43. y.o. M with PMH of diabetes, admitted from [facility] emergency department for pancreatitis. He denies alcohol use. CT scan revealing for no abnormalities as is the u/s. His lipase did jump from 600's to 2000's and he was admitted for pain. Today he is having pain but less consistent, he woke up this am and stated the pain was lessened in the fact it was tolerable. His CRP was 0.15, triglycerides 140, ast 22 alt 28. When palpating RUQ there is pain and there is also pain in LUQ when palpating. He is unsure if there is increase of pain after eating; his diet is increased to soft, if he has pain we will decrease back to clears. If pain persist consider a HIDA scan for Wednesday in case possible gallbladder dymotility. Exam Const General: cooperative, healthy appearing and no acute distress Orientation: alert, awake and oriented x3 HENMT Head: normal to inspection Chest Chest: normal inspection of the chest Resp Effort & Inspection: normal respiratory effort and able to speak in complete sentences Auscultation: clear to auscultation bilaterally Cardio Jugular venous pressure: no JVD Palpation: normal PMI Rate: regular rate Rhythm: regular rhythm Heart Sounds: S1 normal and S2 normal GI Inspection: normal to inspection Auscultation: hypoactive bowel sounds Skin General skin exam: no rashes or lesions noted Neuro General: alert, awake and oriented x3 Objective Objective Clinical Data: Abnormal lab results 12/10/18 12/10/18 12/10/18 Range/Units 11:15 11:15 11:15 RBC 4.17 L (4.50-6.00) m/cumm Hgb 12.3 L (13.5-17.5) g/dL Hct 35.0 L (40.0-50.0) % Glucose 153 H (70-100) mg/dL Calcium 8.0 L (8.5-10.1) mg/dL Total Protein 6.0 L (6.4-8.2) g/dL Albumin 3.1 L (3.4-5.0) g/dL Vital Signs Temperature 36.5 C 12/10/18 11:20 Temperature Source Tympanic 12/10/18 11:20 Pulse 64 12/10/18 11:20 Pulse Rhythm Regular 12/10/18 11:30 Respiratory Rate 20 12/10/18 11:20 Respiratory Effort 12/10/18 11:30 Respiratory Depth Normal 12/10/18 11:30 Respiratory Pattern Normal 12/10/18 11:30 Blood Pressure 164/94 H 12/10/18 11:20 Blood Pressure Position Supine 12/08/18 10:46 Pulse Oximetry 99 12/10/18 11:20 Oxygen Delivery Method Room Air 12/10/18 11:20 Oxygen Flow Rate 0 12/10/18 11:20 Pain Level 0 12/10/18 11:20 Comment 12/09/18 03:20 Intake & Output 12/09/18 12/10/18 12/10/18 23:59 11:59 23:59 Intake Total 3200 / 6716.667 3196.667 / 4196.667 1000 / 4196.667 Balance 3200 / 5616.667 3196.667 / 4196.667 1000 / 4196.667 Weight 58.5 kg Intake: IV 1999 4896.667 2716.667 / 3716.667 999 / 3716.667 Oral 1200 / 1820 480 / 480 Other: Urine Color [place] Urine Appearance Clear Clear Comment patient has been indepandant and does not save urine to be measured Voiding Methods Toilet Toilet Laboratory Results WBC 6.51 k/cumm (4.4-10.8) 12/10/18 11:15 RBC 4.17 m/cumm (4.50-6.00) L 12/10/18 11:15 Hgb 12.3 g/dL (13.5-17.5) L 12/10/18 11:15 Hct 35.0 % (40.0-50.0) L 12/10/18 11:15 MCV 83.9 fL (80-95) 12/10/18 11:15 MCH 29.5 pg (27.0-33.0) 12/10/18 11:15 MCHC 35.1 g/dL (32.0-36.0) 12/10/18 11:15 RDW 12.3 % (11.8-14.1) 12/10/18 11:15 Plt Count 215 x1000/uL (130-400) 12/10/18 11:15 MPV 9.5 fL (8.0-11.0) 12/10/18 11:15 Immature Gran % 0.2 12/10/18 11:15 Neutrophils % 47.9 12/10/18 11:15 Lymphocytes % 42.5 12/10/18 11:15 Monocytes % 7.7 12/10/18 11:15 Eosinophils % 1.2 12/10/18 11:15 Basophils % 0.5 12/10/18 11:15 Absolute Neutrophils 3.12 k/cumm (1.2-6.7) 12/10/18 11:15 Absolute Lymphocytes 2.77 k/cumm (1.2-3.4) 12/10/18 11:15 Absolute Monocytes 0.50 k/cumm (0.11-0.7) 12/10/18 11:15 Absolute Eosinophils 0.08 k/cumm (0.0-0.7) 12/10/18 11:15 Absolute Basophils 0.03 k/cumm (0.0-0.2) 12/10/18 11:15 Sodium 142 mmol/L (136-145) 12/10/18 11:15 Potassium 3.7 mmol/L (3.5-5.1) 12/10/18 11:15 Chloride 107 mmol/L (98-107) 12/10/18 11:15 Carbon Dioxide 28.5 mmol/L (21.0-32.0) 12/10/18 11:15 Anion Gap 6.5 mmol/L (3-11) 12/10/18 11:15 BUN 8 mg/dL (7-18) 12/10/18 11:15 Creatinine 1.12 mg/dL (0.70-1.30) 12/10/18 11:15 Estimated GFR/1.73 m2 >= 60.00 (mL/min/1.73m2) 12/10/18 11:15 Glucose 153 mg/dL (70-100) H 12/10/18 11:15 Hemoglobin A1c 7.6 % (4.5-6.2) H 12/09/18 06:34 Calcium 8.0 mg/dL (8.5-10.1) L 12/10/18 11:15 Magnesium 1.8 mg/dL (1.8-2.4) 12/10/18 11:15 Total Bilirubin 0.4 mg/dL (0.2-1.0) 12/10/18 11:15 Conjugated Bilirubin 0.11 mg/dL (0.00-0.20) 12/10/18 11:15 AST 22 U/L (15-37) 12/10/18 11:15 ALT 28 U/L (12-78) 12/10/18 11:15 Alkaline Phosphatase 67 U/L (46-116) 12/10/18 11:15 C-Reactive Protein 0.15 mg/dL (0.0-0.3) 12/10/18 11:15 Total Protein 6.0 g/dL (6.4-8.2) L 12/10/18 11:15 Albumin 3.1 g/dL (3.4-5.0) L 12/10/18 11:15 Triglycerides 140 mg/dL (30-150) 12/09/18 06:34 Total Cholesterol 133 mg/dL (50-200) 12/09/18 06:34 LDL Cholesterol Direct 83 mg/dL (<100) 12/09/18 06:34 HDL Cholesterol 33 mg/dL (40-60) L 12/09/18 06:34 Lipase 2832 U/L (73-393) H 12/09/18 06:34 Urine Color Yellow (Yellow) 12/08/18 11:24 Urine Clarity Clear 12/08/18 11:24 Urine pH 5.5 (5-8) 12/08/18 11:24 Ur Specific [place] 1.020 (1.005-1.025) 12/08/18 11:24 Urine Protein 30 mg/dL (Negative) H 12/08/18 11:24 Urine Ketones Negative mg/dL (Negative) 12/08/18 11:24 Urine Blood Small (Negative) H 12/08/18 11:24 Urine Nitrite Negative (Negative) 12/08/18 11:24 Urine Bilirubin Negative (Negative) 12/08/18 11:24 Urine Urobilinogen 0.2 EU/dL (Up TO 0.2) 12/08/18 11:24 Ur Leukocyte Esterase Negative (Negative) 12/08/18 11:24 Urine RBC 0-2 (0-2) 12/08/18 11:24 Urine WBC Negative HPF (0-5) 12/08/18 11:24 Ur Epithelial Cells Negative HPF (Negative) 12/08/18 11:24 Urine Crystals Negative HPF (Negative) 12/08/18 11:24 Urine Bacteria Rare HPF (Negative) 12/08/18 11:24 Urine Casts Negative LPF (Negative) 12/08/18 11:24 Urine Mucus Negative (Negative) 12/08/18 11:24 Ur Culture Indicated? No 12/08/18 11:24 Urine Glucose Negative mg/dL (Negative) 12/08/18 11:24
--- NOTE | 2018-12-10 19:02 | PDOC.CMPRO ---
Care Management Progress Note S/O: Aldo has been ambulating through the hallways at [facility] today. He has required close monitoring of his anxiety and has lorazepam ordered to support regulation. CM will continue to follow. A: 43 year old male admitted to [facility] 12/08/18 for Acute Pancreatitis P: Shoaib will discharge home with no anticipated services. He will follow up with his PCP and plan of care as prescribed. He will transport home via private vehicle with his significant other, Janelle.
--- NOTE | 2018-12-10 19:07 | CMPROGNOTE_ITS ---
Care Management Progress Note S/O: Aldo has been ambulating through the hallways at [facility] today. He has required close monitoring of his anxiety and has lorazepam ordered to support regulation. CM will continue to follow. A: 43 year old male admitted to [facility] 12/08/18 for Acute Pancreatitis P: Shoaib will discharge home with no anticipated services. He will follow up with his PCP and plan of care as prescribed. He will transport home via private vehicle with his significant other, Janelle.
[2018-12-10] MEDS: Ketorolac 15 MG/ML VIAL IVP (22:11)
[2018-12-10] MEDS: Insulin Glargine 300 UNITS/3 ML PEN 6 UNITS SC (22:12)
[2018-12-11] VITALS (8 sets, daily range): BP systolic 123–188; BP diastolic 75–96; PULSE 64–73; RESP 17–18; TEMP 36.1–37; O2SAT 97–99
[2018-12-11] MEDS: Normal Saline 1,000 ML 200 ML IV (03:44)
[2018-12-11] MEDS: Acetaminophen 325 MG TAB PO (06:15)
[2018-12-11 07:18] LABS: Abs Immature Grans 0.03 k/cumm (0.0-0.09); Absolute Basophil Count 0.07 k/cumm (0.0-0.2); Absolute Lymphocyte Count 2.71 k/cumm (1.2-3.4); Absolute Monocyte Count 0.59 k/cumm (0.11-0.7); Absolute Neutrophil Count 3.57 k/cumm (1.2-6.7); Eosinophils % 2.8; HCT 40.5 % (40.0-50.0); HGB 14.2 g/dL (13.5-17.5); Immature Grans % 0.4; Lymphocytes % 37.8; Mean Corp. HGB Concentration 35.1 g/dL (32.0-36.0); Mean Corpuscular Hemoglobin 29.2 pg (27.0-33.0); Mean Corpuscular Volume 83.2 fL (80-95); Mean Platelet Volume 9.4 fL (8.0-11.0); Monocytes % 8.2; Neutrophils % 49.8; Platelet Count 290 x1000/uL (130-400); RBC 4.87 m/cumm (4.50-6.00); RBC Distribution Width 12.5 % (11.8-14.1); White Blood Cell Count 7.17 k/cumm (4.4-10.8)
[2018-12-11 07:26] LABS: BUN 7 mg/dL (7-18); CREATININE 1.03 mg/dL (0.70-1.30); Calcium 8.2 mg/dL (8.5-10.1); Chloride 105 mmol/L (98-107); Glucose 161 mg/dL (70-100); Magnesium 1.8 mg/dL (1.8-2.4); Potassium 3.5 mmol/L (3.5-5.1); Sodium 142 mmol/L (136-145)
[2018-12-11] MEDS: Normal Saline Flush 10 ML SYR IVP (08:12)
[2018-12-11] MEDS: Insulin Aspart 300 UNITS/3 ML PEN SC ×3 (08:12→16:52)
[2018-12-11] MEDS: glipiZIDE 10 MG TAB PO (08:12)
--- NOTE | 2018-12-11 09:29 | CMPROGNOTE_ITS ---
Care Management Progress Note S/O: Aldo has been ambulating through the hallways at [facility] today. He has required close monitoring of his anxiety and has lorazepam ordered to support regulation, he identified this as THC withdrawal; CM notified [employer] of this information. CM reviewed policy about leaving the floor as an acute patient. Aldo was agreeable to policy and energetically engaged with this press writer; his SO and minor son, NICO were present as well. Shoaib reviewed illness and lack of income over the last few months; appearing to fit eligibility for DAVON; Aldo was resistant to the idea of welfare help. He identified being raised by a single mother on welfare and promising himself he would never draw off the system. CM provided patient education around eligibility requirements and length of coverage as Shoaib will likely not meet income eligibility requirements once he is working again; but if DAVON back dates to the first this admission could be c overed. Shoaib was then agreeable to meeting with a navigator from [facility] either as an inpatient if possible or as an outpatient post discharge. Shoaib and Janelle spoke in length regarding their mistrust of hospitals and medical struggles. CM provided support listening and validated their concerns and ability to self- advocate. Shoaib identified that he would like to take better care of himself once he returns to the community. CM will continue to follow. A: 43 year old male admitted to [facility] 12/08/18 for Acute Pancreatitis P: Shoaib will discharge home with no anticipated services, he will follow up with [facility] for insurance navigation support. He will follow up with his PCP and plan of care as prescribed. He will transport home via private vehicle with his significant other, Janelle.
[2018-12-11 10:24] LABS: ALT 45 U/L (12-78); AST 34 U/L (15-37); Albumin 3.6 g/dL (3.4-5.0); Alkaline Phosphatase 84 U/L (46-116); Bilirubin, Total 0.4 mg/dL (0.2-1.0); Total Protein 6.9 g/dL (6.4-8.2)
--- NOTE | 2018-12-11 11:08 | PGE_ITS ---
Date of Service Date of service: 12/11/18 Time of Service: 11:23 Assessment and Plan (1) Pancreatitis: Start date: 12/11/18 Start time: 11:05 Current visit: Yes Status: Chronic Continues to have pain that radiates to his back. Had nausea after eating last night with pain, diet changed back to clears. Continue IVF, HIDA scan ordered for tomorrow with surgery consult. (2) Diabetes: Start date: 12/11/18 Start time: 11:06 Current visit: Yes Status: Chronic continue lantus, continue to monitor, glucose has been stable under 180's (3) Anxiety: Start date: 12/11/18 Start time: 11:07 Current visit: Yes Status: Chronic PRN Ativan for anxiety while in the hospital., is anxious to go home, understands the plan and agreeable at this time. Melatonin at bedtime. he does have a nervous energy, maybe some underlying psychiatric disorder, should be followed up on outpatient. (4) DVT prophylaxis: Start date: 12/11/18 Start time: 11:07 Current visit: Yes Status: Acute Hold chemical DVT prophylaxis in this 43-year-old ambulatory man. Subjective Patient reports: no new complaints Interval history since last seen: Mr. Martinez is a 43. y.o. M with PMH of diabetes, admitted from [facility] emergency department for pancreatitis. He denies alcohol use. CT scan revealing for no abnormalities as is the u/s. His lipase did jump from 600's to 2000's and he was admitted for pain. Today he is having pain still, he grimaces when his RUQ and LUQ are palpated, he did feel sick after a soft diet with pain last night to his LUQ and back and again this am. He has been switched back to clears. At this point a HIDA scan is ordered given the pain with palpation to RUQ, he also states these symptoms have been waxing and wanning for many months of eating and getting nauseated with s evere pain relieved by defecation. Surgery has been consulted and HIDA for tomorrow to r/o gallbladder dysmotility. He denies CP, SOB, he is ambulatory. Exam Const General: cooperative, healthy appearing and no acute distress Orientation: alert, awake and oriented x3 HENMT Head: normal to inspection Chest Chest: normal inspection of the chest Resp Effort & Inspection: normal respiratory effort and able to speak in complete sentences Auscultation: clear to auscultation bilaterally Cardio Jugular venous pressure: no JVD Palpation: normal PMI Rate: regular rate Rhythm: regular rhythm Heart Sounds: S1 normal and S2 normal GI Inspection: normal to inspection Auscultation: hypoactive bowel sounds Other: guarding and grimacing when palpation of abdomen to RUQ and LUQ Skin General skin exam: no rashes or lesions noted Neuro General: alert, awake and oriented x3 Objective Objective Clinical Data: Abnormal lab results 12/10/18 12/10/18 12/10/18 Range/Units 11:15 11:15 11:15 RBC 4.17 L (4.50-6.00) m/cumm Hgb 12.3 L (13.5-17.5) g/dL Hct 35.0 L (40.0-50.0) % Glucose 153 H (70-100) mg/dL Calcium 8.0 L (8.5-10.1) mg/dL Total Protein 6.0 L (6.4-8.2) g/dL Albumin 3.1 L (3.4-5.0) g/dL 12/11/18 Range/Units 07:05 RBC (4.50-6.00) m/cumm Hgb (13.5-17.5) g/dL Hct (40.0-50.0) % Glucose 161 H (70-100) mg/dL Calcium 8.2 L (8.5-10.1) mg/dL Total Protein (6.4-8.2) g/dL Albumin (3.4-5.0) g/dL Vital Signs Temperature 36.1 C L 12/11/18 08:00 Temperature Source Tympanic 12/11/18 08:00 Pulse 73 12/11/18 08:00 Pulse Rhythm Regular 12/11/18 09:13 Respiratory Rate 18 12/11/18 08:00 Respiratory Effort 12/11/18 09:13 Respiratory Depth Normal 12/11/18 09:13 Respiratory Pattern Normal 12/11/18 09:13 Blood Pressure 175/83 H 12/11/18 08:00 Blood Pressure Position Supine 12/08/18 10:46 Pulse Oximetry 98 12/11/18 08:05 Oxygen Delivery Method Room Air 12/11/18 08:05 Oxygen Flow Rate 0 12/11/18 08:05 Pain Level 1 12/11/18 08:00 Comment 12/09/18 03:20 Intake & Output 12/10/18 12/10/18 12/11/18 11:59 23:59 11:59 Intake Total 3196.667 / 6556.667 3360 / 6556.667 2993.334 / 2993.334 Balance 3196.667 / 6556.667 3360 / 6556.667 2993.334 / 2993.334 Weight 58.5 kg 58.5 kg Intake: IV 2716.667 / 5716.667 3000 / 5716.667 2743.334 / 2743.334 Oral 480 / 840 360 / 840 250 / 250 Other: Urine Color [place] Urine Appearance Clear Clear Comment patient has been indepandant and does not save urine to be measured Voiding Methods Toilet Toilet Toilet Laboratory Results WBC 7.17 k/cumm (4.4-10.8) 12/11/18 07:00 RBC 4.87 m/cumm (4.50-6.00) 12/11/18 07:00 Hgb 14.2 g/dL (13.5-17.5) 12/11/18 07:00 Hct 40.5 % (40.0-50.0) 12/11/18 07:00 MCV 83.2 fL (80-95) 12/11/18 07:00 MCH 29.2 pg (27.0-33.0) 12/11/18 07:00 MCHC 35.1 g/dL (32.0-36.0) 12/11/18 07:00 RDW 12.5 % (11.8-14.1) 12/11/18 07:00 Plt Count 290 x1000/uL (130-400) 12/11/18 07:00 MPV 9.4 fL (8.0-11.0) 12/11/18 07:00 Immature Gran % 0.4 12/11/18 07:00 Neutrophils % 49.8 12/11/18 07:00 Lymphocytes % 37.8 12/11/18 07:00 Monocytes % 8.2 12/11/18 07:00 Eosinophils % 2.8 12/11/18 07:00 Basophils % 1.0 12/11/18 07:00 Absolute Neutrophils 3.57 k/cumm (1.2-6.7) 12/11/18 07:00 Absolute Lymphocytes 2.71 k/cumm (1.2-3.4) 12/11/18 07:00 Absolute Monocytes 0.59 k/cumm (0.11-0.7) 12/11/18 07:00 Absolute Eosinophils 0.20 k/cumm (0.0-0.7) 12/11/18 07:00 Absolute Basophils 0.07 k/cumm (0.0-0.2) 12/11/18 07:00 Sodium 142 mmol/L (136-145) 12/11/18 07:05 Potassium 3.5 mmol/L (3.5-5.1) 12/11/18 07:05 Chloride 105 mmol/L (98-107) 12/11/18 07:05 Carbon Dioxide 29.0 mmol/L (21.0-32.0) 12/11/18 07:05 Anion Gap 8.0 mmol/L (3-11) 12/11/18 07:05 BUN 7 mg/dL (7-18) 12/11/18 07:05 Creatinine 1.03 mg/dL (0.70-1.30) 12/11/18 07:05 Estimated GFR/1.73 m2 >= 60.00 (mL/min/1.73m2) 12/11/18 07:05 Glucose 161 mg/dL (70-100) H 12/11/18 07:05 Hemoglobin A1c 7.6 % (4.5-6.2) H 12/09/18 06:34 Calcium 8.2 mg/dL (8.5-10.1) L 12/11/18 07:05 Magnesium 1.8 mg/dL (1.8-2.4) 12/11/18 07:05 Total Bilirubin 0.4 mg/dL (0.2-1.0) 12/11/18 07:05 Conjugated Bilirubin 0.10 mg/dL (0.00-0.20) 12/11/18 07:05 AST 34 U/L (15-37) 12/11/18 07:05 ALT 45 U/L (12-78) 12/11/18 07:05 Alkaline Phosphatase 84 U/L (46-116) 12/11/18 07:05 C-Reactive Protein 0.15 mg/dL (0.0-0.3) 12/10/18 11:15 Total Protein 6.9 g/dL (6.4-8.2) 12/11/18 07:05 Albumin 3.6 g/dL (3.4-5.0) 12/11/18 07:05 Triglycerides 140 mg/dL (30-150) 12/09/18 06:34 Total Cholesterol 133 mg/dL (50-200) 12/09/18 06:34 LDL Cholesterol Direct 83 mg/dL (<100) 12/09/18 06:34 HDL Cholesterol 33 mg/dL (40-60) L 12/09/18 06:34 Lipase 2832 U/L (73-393) H 12/09/18 06:34 Urine Color Yellow (Yellow) 12/08/18 11:24 Urine Clarity Clear 12/08/18 11:24 Urine pH 5.5 (5-8) 12/08/18 11:24 Ur Specific [place] 1.020 (1.005-1.025) 12/08/18 11:24 Urine Protein 30 mg/dL (Negative) H 12/08/18 11:24 Urine Ketones Negative mg/dL (Negative) 12/08/18 11:24 Urine Blood Small (Negative) H 12/08/18 11:24 Urine Nitrite Negative (Negative) 12/08/18 11:24 Urine Bilirubin Negative (Negative) 12/08/18 11:24 Urine Urobilinogen 0.2 EU/dL (Up TO 0.2) 12/08/18 11:24 Ur Leukocyte Esterase Negative (Negative) 12/08/18 11:24 Urine RBC 0-2 (0-2) 12/08/18 11:24 Urine WBC Negative HPF (0-5) 12/08/18 11:24 Ur Epithelial Cells Negative HPF (Negative) 12/08/18 11:24 Urine Crystals Negative HPF (Negative) 12/08/18 11:24 Urine Bacteria Rare HPF (Negative) 12/08/18 11:24 Urine Casts Negative LPF (Negative) 12/08/18 11:24 Urine Mucus Negative (Negative) 12/08/18 11:24 Ur Culture Indicated? No 12/08/18 11:24 Urine Glucose Negative mg/dL (Negative) 12/08/18 11:24
[2018-12-11] MEDS: Normal Saline 1,000 ML 100 ML IV ×2 (12:40→21:17)
--- NOTE | 2018-12-11 18:12 | W.SURGCON ---
Date of service: 12/11/18 Time of Service: 18:13 Assessment and Plan (1) Pancreatitis: Current visit: Yes Status: Chronic Elevated lipase on this admission from 605 up to 2832 on 12/09/18. LFTs unremarkable. WBC WNL. No evidence of gallstone pancreatitis on imaging. Possible reactive pancreatitis secondary to gastritis/duodenitis, possible ulcer. Check lipase in am to see if it is trending up or down. Patient on clears. May advance diet again in the am if improving. (2) Epigastric pain: Current visit: Yes Status: Acute Suspect peptic ulcer disease, gastritis/duodenitis with h/o GERD symptoms, hematemesis, and remote h/o ulcer. No hematemesis x 1 week per patient. Patient started on Nexium IV on this admission. Will add Carafate. Recommend EGD for further eval. Can be done on this admission or as an outpatient. Non-urgent as the hematemesis has stopped. HIDA scan ordered for am. Await results. Patient denies h/o fatty food intolerance. Discussed with patient's nurse. History of Present Illness Chief Complaint: Abdominal pain Narrative: 43 y/o male admitted with abdominal pain, pancreatitis vs. gastritis, on 12/08/18. Patient c/o pain in the epigastric and LUQ areas. He notes intermittent nausea and vomiting over the past year. About a week ago, he noted blood and clots in his emesis with dark stools. He notes a prior h/o ulcers at 18 due to high stress. He also notes chronic heartburn and reflux associated with the emesis. He takes Tums at home but is not on any prescribed ulcer meds. He was started on Nexium IV on this admission. He noted sweats and chills associated with the emesis. He denies ETOH use. He has never had an EGD or colonoscopy. Lipase was in the 600s on admission and went up to 2000s on 12/09/18. It hasn't been checked since. LFTs unremarkable. CT and ultrasound negative for gallstones or bile duct dilation. He had a regular diet last night and noted severe pain going to his back. His diet was decreased to clear liquids today. He denies any h/o fatty food intolerance. HIDA scan for the am and surgical consult ordered today by the primary service. Consults Consult date: 12/11/18 Requesting physician: Natalie Farfan Review of Systems Constitutional Reports system reviewed and no additional complaints, except as docu, Reports chills and Reports other (sweats) Gastrointestinal Reports abdominal pain, Reports heartburn, Reports nausea and Reports vomiting [facility] Medical History Diabetes (Chronic) Surgical History History of dental surgery (Acute) H/O elbow surgery (Acute) Family History Mother Diabetes Social History Smoking/Tobacco Use Status: Never Alcohol Intake: never Drug use: Daily Substance use type: marijuana Do you feel safe at home: Yes Do you feel safe in your relationship?: Yes Exam Const General: no acute distress and well developed Nutritional Appearance: well nourished Orientation: alert and oriented x3 HENMT Head: normocephalic and atraumatic Resp Effort & Inspection: normal respiratory effort and able to speak in complete sentences Cardio Jugular venous pressure: no JVD GI Inspection: non-distended Palpation: soft, not firm, no guarding, not rigid and tender (minimal discomfort to palpation diffusely) Skin General skin exam: no rashes or lesions noted and no jaundice Neuro General: alert and oriented x3 Speech: speech normal Results Last Vital Signs Temp 36.4 C L 12/11/18 15:53 Pulse 67 12/11/18 15:53 Resp 17 12/11/18 15:53 BP 175/95 H 12/11/18 15:53 Pulse Ox 98 12/11/18 15:53 Labs : 12/11/18 07:00 12/11/18 07:05 Laboratory Results - last 24 hr 12/11/18 12/11/18 07:00 07:05 WBC 7.17 RBC 4.87 Hgb 14.2 Hct 40.5 MCV 83.2 MCH 29.2 MCHC 35.1 RDW 12.5 Plt Count 290 MPV 9.4 Immature Gran % 0.4 Neutrophils % 49.8 Lymphocytes % 37.8 Monocytes % 8.2 Eosinophils % 2.8 Basophils % 1.0 Absolute Neutrophils 3.57 Absolute Lymphocytes 2.71 Absolute Monocytes 0.59 Absolute Eosinophils 0.20 Absolute Basophils 0.07 Sodium 142 Potassium 3.5 Chloride 105 Carbon Dioxide 29.0 Anion Gap 8.0 BUN 7 Creatinine 1.03 Estimated GFR/1.73 m2 >= 60.00 Glucose 161 H Calcium 8.2 L Magnesium 1.8 Total Bilirubin 0.4 Conjugated Bilirubin 0.10 AST 34 ALT 45 Alkaline Phosphatase 84 Total Protein 6.9 Albumin 3.[address] scan report/results: report reviewed and image reviewed CT scan - pelvis: report reviewed and image reviewed Abdominal ultrasound report/results: report reviewed and image reviewed Imaging Studies: Patient Name: OLEGARIO WYMAN nit #: [id number]: ER Ordering Provider: Olga Hartunt #: [id number]: [facility] ER Primary Care Provider: Kaushal Schmidt Date of Exam: 12/08/18Sex: M Admission Date: 12/08/18 : 1975 Age: 43 Exam(s) a US:US abdomen limited SYMPTOMS/DIAGNOSIS: RIGHT UPPER QUADRANT TENDERNESS, ? CHOLECYSTITIS LIMITED ABDOMINAL ULTRASOUND: The gallbladder is normal. There is no evidence of gallstones. There is no evidence of ductal dilatation. The head of the pancreas appears intact. The body and tail are not seen. SUMMARY: There is no evidence of gallstones or biliary dilatation. The head of the pancreas is acoustically normal and there is no evidence of free fluid. Ordered By: Olga Hart DO CC: Dictated By: Juan Carlos James M.D. 12/08/18 1407 <Electronically signed by Juan Carlos James M.D.> 12/08/18 4799 Transcribed By: Kavin Wilkes 12/08/18 5995 This is privileged, confidential information intended only for the provider named. Any use or distribution by any person other than this provider is strictly prohibited. If you receive this report in error, please notify us immediately at [phone] and return the original report to us at the address above. Thank-you. Patient Name: OLEGARIO WYMAN #: [id number]: Ordering Provider: Olga Hart DOAccount #: [id number]: ADM DAMON Primary Care Provider: Kaushal Schmidt Date of Exam: 12/08/18Sex: M : 1975Age: 43 Exam(s) a CT:CT abdomen & pelvis w SYMPTOM/DIAGNOSIS: EPIGASTRIC PAIN, ELEVATED LIPASE, ? PANCREATITIS ABDOMEN AND PELVIC CT: A CT examination of the abdomen and pelvis was performed following the intravenous infusion of 84 cc's of Omnipaque 350 and the ingestion of oral contrast. The liver and spleen are normal in size and shape with no evidence of any focal defects. There is no evidence of biliary dilatation. The gallbladder has a normal CT appearance. The pancreas appears intact and is not enlarged. There is no evidence of retroperitoneal lymphadenopathy. The bladder appears intact. The kidneys show bilateral function and there is no evidence of a renal mass. The vascular structures appear intact. There is no evidence of a mass in the pelvis. There is no evidence of a fluid collection or adenopathy. CONCLUSION: Normal abdominal and pelvic CT. [id number]: Total DLP = 0.00 mGy-cm Ordered By: Olga Hart DO CC: Dictated By: Luis العراقي M.D. 12/09/18 0823 <Electronically signed by Luis العراقي M.D.> 12/09/18 1100 Transcribed By: Samira Irene 12/09/18 0854 This is privileged, confidential information intended only for the provider named. Any use or distribution by any person other than this provider is strictly prohibited. If you receive this report in error, please notify us immediately at [phone] and return the original report to us at the address above. Thank-you.
[2018-12-11] MEDS: Sucralfate 1 GM TAB PO (22:08)
[2018-12-11] MEDS: Insulin Glargine 300 UNITS/3 ML PEN 6 UNITS SC (22:09)
[2018-12-12 03:25] VITALS: BP 145/80; PULSE 67; RESP 16; TEMP 36.6; O2SAT 98
--- NOTE | 2018-12-12 07:00 | DI.NM_ITS ---
SYMPTOM/DIAGNOSIS: RUQ PAIN, VOMITING HEPATOBILIARY SCAN: The patient received 4.8 millicuries of Technetium 99 Mebrofenin. The liver, bile ducts, gallbladder and small bowel were visualized at the appropriate time interval. IMPRESSION: Normal hepatobiliary scan.
[2018-12-12 07:11] LABS: Abs Immature Grans 0.02 k/cumm (0.0-0.09); Absolute Basophil Count 0.04 k/cumm (0.0-0.2); Absolute Eosinophil Count 0.18 k/cumm (0.0-0.7); Absolute Lymphocyte Count 2.42 k/cumm (1.2-3.4); Absolute Monocyte Count 0.59 k/cumm (0.11-0.7); Absolute Neutrophil Count 3.72 k/cumm (1.2-6.7); Basophils % 0.6; Eosinophils % 2.6; HCT 36.8 % (40.0-50.0); Immature Grans % 0.3; Lymphocytes % 34.7; Mean Corp. HGB Concentration 35.3 g/dL (32.0-36.0); Mean Corpuscular Hemoglobin 29.2 pg (27.0-33.0); Mean Corpuscular Volume 82.7 fL (80-95); Mean Platelet Volume 9.6 fL (8.0-11.0); Monocytes % 8.5; Neutrophils % 53.3; Platelet Count 261 x1000/uL (130-400); RBC 4.45 m/cumm (4.50-6.00); RBC Distribution Width 12.3 % (11.8-14.1); White Blood Cell Count 6.97 k/cumm (4.4-10.8)
[2018-12-12] MEDS: Normal Saline 1,000 ML 100 ML IV ×2 (07:18→23:00)
[2018-12-12 07:19] LABS: Lipase 94 U/L (73-393); Magnesium 1.6 mg/dL (1.8-2.4)
[2018-12-12 07:28] LABS: Anion Gap 10.5 mmol/L (3-11); BUN 8 mg/dL (7-18); CO2 26.5 mmol/L (21.0-32.0); CREATININE 1.03 mg/dL (0.70-1.30); Calcium 8.3 mg/dL (8.5-10.1); Chloride 104 mmol/L (98-107); Glucose 188 mg/dL (70-100); Potassium 3.3 mmol/L (3.5-5.1); Sodium 141 mmol/L (136-145)
[2018-12-12 07:48] VITALS: BP 143/75; PULSE 70; RESP 18; TEMP 36.4; O2SAT 96
--- NOTE | 2018-12-12 08:24 | PGE_ITS ---
Date of Service Date of service: 12/12/18 Time of Service: 08:22 Assessment and Plan (1) Pancreatitis: Current visit: Yes Status: Chronic (2) Epigastric pain: Current visit: Yes Status: Acute A// Well appearing 43 y/o male, currently denies any abdominal pain, nausea or vomiting. HE expresses that he is eager to return home. Currently he is on Carafate and Nexium IV. Dr. Madden recommendations for an EGD either on this admission or as an outpatient. DIET- NPO for HIDA scan HIDA scan is scheduled for later this morning. Subjective Interval history since last seen: Mr. Martinez reports that he didn't get any sleep last night, however his epigastric pain has resolved. I haven't had any pain last night or this morning. Exam Const General: cooperative, healthy appearing and comfortable Orientation: alert and oriented x3 Resp Effort & Inspection: normal respiratory effort, no audible wheezes and no cough Auscultation: clear to auscultation bilaterally and no wheezes Cardio Jugular venous pressure: no JVD Rate: regular rate Rhythm: regular rhythm Heart Sounds: S1 normal, S2 normal and no murmurs GI Inspection: normal to inspection Palpation: soft, no guarding and nontender Auscultation: normal bowel sounds Objective Objective Clinical Data: Abnormal lab results 12/12/18 12/12/18 12/12/18 Range/Units 06:14 06:14 06:14 RBC 4.45 L (4.50-6.00) m/cumm Hgb 13.0 L (13.5-17.5) g/dL Hct 36.8 L (40.0-50.0) % Potassium 3.3 L (3.5-5.1) mmol/L Glucose 188 H (70-100) mg/dL Calcium 8.3 L (8.5-10.1) mg/dL Magnesium 1.6 L (1.8-2.4) mg/dL Vital Signs Temperature 36.4 C L 12/12/18 07:48 Temperature Source Tympanic 12/12/18 07:48 Pulse 70 12/12/18 07:48 Pulse Rhythm Regular 12/12/18 01:25 Respiratory Rate 18 12/12/18 07:48 Respiratory Effort 12/12/18 01:25 Respiratory Depth Normal 12/12/18 01:25 Respiratory Pattern Normal 12/12/18 01:25 Blood Pressure 143/75 H 12/12/18 07:48 Blood Pressure Position Supine 12/08/18 10:46 Pulse Oximetry 96 12/12/18 07:48 Oxygen Delivery Method Room Air 12/12/18 07:48 Oxygen Flow Rate 0 12/12/18 07:48 Pain Level 0 12/12/18 07:48 Comment 12/12/18 03:25 Intake & Output 12/11/18 12/12/18 12/12/18 18:59 06:59 18:59 Intake Total 2640.000 / 3501.667 861.667 / 3501.667 1000 / 1000 Balance 2640.000 / 3501.667 861.667 / 3501.667 1000 / 1000 Intake: IV 1000.000 / 1861.667 861.667 / 3976.884 7273 / 1000 Oral 1640 / 1640 Other: Urine Appearance Clear Clear Comment voids indep in br and flushes Voiding Methods Toilet Toilet Laboratory Results WBC 6.97 k/cumm (4.4-10.8) 12/12/18 06:14 RBC 4.45 m/cumm (4.50-6.00) L 12/12/18 06:14 Hgb 13.0 g/dL (13.5-17.5) L 12/12/18 06:14 Hct 36.8 % (40.0-50.0) L 12/12/18 06:14 MCV 82.7 fL (80-95) 12/12/18 06:14 MCH 29.2 pg (27.0-33.0) 12/12/18 06:14 MCHC 35.3 g/dL (32.0-36.0) 12/12/18 06:14 RDW 12.3 % (11.8-14.1) 12/12/18 06:14 Plt Count 261 x1000/uL (130-400) 12/12/18 06:14 MPV 9.6 fL (8.0-11.0) 12/12/18 06:14 Immature Gran % 0.3 12/12/18 06:14 Neutrophils % 53.3 12/12/18 06:14 Lymphocytes % 34.7 12/12/18 06:14 Monocytes % 8.5 12/12/18 06:14 Eosinophils % 2.6 12/12/18 06:14 Basophils % 0.6 12/12/18 06:14 Absolute Neutrophils 3.72 k/cumm (1.2-6.7) 12/12/18 06:14 Absolute Lymphocytes 2.42 k/cumm (1.2-3.4) 12/12/18 06:14 Absolute Monocytes 0.59 k/cumm (0.11-0.7) 12/12/18 06:14 Absolute Eosinophils 0.18 k/cumm (0.0-0.7) 12/12/18 06:14 Absolute Basophils 0.04 k/cumm (0.0-0.2) 12/12/18 06:14 Sodium 141 mmol/L (136-145) 12/12/18 06:14 Potassium 3.3 mmol/L (3.5-5.1) L 12/12/18 06:14 Chloride 104 mmol/L (98-107) 12/12/18 06:14 Carbon Dioxide 26.5 mmol/L (21.0-32.0) 12/12/18 06:14 Anion Gap 10.5 mmol/L (3-11) 12/12/18 06:14 BUN 8 mg/dL (7-18) 12/12/18 06:14 Creatinine 1.03 mg/dL (0.70-1.30) 12/12/18 06:14 Estimated GFR/1.73 m2 >= 60.00 (mL/min/1.73m2) 12/12/18 06:14 Glucose 188 mg/dL (70-100) H 12/12/18 06:14 Hemoglobin A1c 7.6 % (4.5-6.2) H 12/09/18 06:34 Calcium 8.3 mg/dL (8.5-10.1) L 12/12/18 06:14 Magnesium 1.6 mg/dL (1.8-2.4) L 12/12/18 06:14 Total Bilirubin 0.4 mg/dL (0.2-1.0) 12/11/18 07:05 Conjugated Bilirubin 0.10 mg/dL (0.00-0.20) 12/11/18 07:05 AST 34 U/L (15-37) 12/11/18 07:05 ALT 45 U/L (12-78) 12/11/18 07:05 Alkaline Phosphatase 84 U/L (46-116) 12/11/18 07:05 C-Reactive Protein 0.15 mg/dL (0.0-0.3) 12/10/18 11:15 Total Protein 6.9 g/dL (6.4-8.2) 12/11/18 07:05 Albumin 3.6 g/dL (3.4-5.0) 12/11/18 07:05 Triglycerides 140 mg/dL (30-150) 12/09/18 06:34 Total Cholesterol 133 mg/dL (50-200) 12/09/18 06:34 LDL Cholesterol Direct 83 mg/dL (<100) 12/09/18 06:34 HDL Cholesterol 33 mg/dL (40-60) L 12/09/18 06:34 Lipase 94 U/L (73-393) 12/12/18 06:14 Urine Color Yellow (Yellow) 12/08/18 11:24 Urine Clarity Clear 12/08/18 11:24 Urine pH 5.5 (5-8) 12/08/18 11:24 Ur Specific [place] 1.020 (1.005-1.025) 12/08/18 11:24 Urine Protein 30 mg/dL (Negative) H 12/08/18 11:24 Urine Ketones Negative mg/dL (Negative) 12/08/18 11:24 Urine Blood Small (Negative) H 12/08/18 11:24 Urine Nitrite Negative (Negative) 12/08/18 11:24 Urine Bilirubin Negative (Negative) 12/08/18 11:24 Urine Urobilinogen 0.2 EU/dL (Up TO 0.2) 12/08/18 11:24 Ur Leukocyte Esterase Negative (Negative) 12/08/18 11:24 Urine RBC 0-2 (0-2) 12/08/18 11:24 Urine WBC Negative HPF (0-5) 12/08/18 11:24 Ur Epithelial Cells Negative HPF (Negative) 12/08/18 11:24 Urine Crystals Negative HPF (Negative) 12/08/18 11:24 Urine Bacteria Rare HPF (Negative) 12/08/18 11:24 Urine Casts Negative LPF (Negative) 12/08/18 11:24 Urine Mucus Negative (Negative) 12/08/18 11:24 Ur Culture Indicated? No 12/08/18 11:24 Urine Glucose Negative mg/dL (Negative) 12/08/18 11:24
[2018-12-12] MEDS: Normal Saline Flush 10 ML SYR IVP ×2 (09:05→20:17)
--- NOTE | 2018-12-12 10:14 | NUR.NOTE ---
Ok to give potassium now dose once pt is finished with test per Shantel BUTLER. Nursing Note:
[2018-12-12] MEDS: MAGNESIUM SULFATE 2 GM/50 ML BAG IVPB (11:15)
[2018-12-12 11:57] VITALS: BP 154/91; PULSE 81; RESP 18; TEMP 36.5; O2SAT 100
--- NOTE | 2018-12-12 12:04 | DM INPTCON_ITS ---
Date of service: 12/12/18 Time of Service: 10:06 Diabetes Inpatient Consult DESCRIPTION/ASSESSMENT: Appreciate diabetes consult for Mr. Martinez who I was able to visit this morning along with his partner. Blood sugars using 6 units Lantus and sensitive insulin correction 104-177 over past 2 days. He his diet order has been NPO - bland - clear. He has required 1 unit correction at most meals. He states he will live his life and then and he feels ready for this. He states he is frustrated that he has lost so much muscle mass and has periods of little energy. He states he does not have health insurance at this time. He reports he does not go to the doctor anymore because they were not doing anything to help him understand diabetes. He has thrown away glucometers because he did not use them and they were in the way. He takes Lantus most nights, sometimes forgets AM medication. He eats several times a day. He is not aware of carbohydrate foods but has paid attention to sugar sources. He reports rare episodes of hypoglycemia and recounts his episode here on his first night. He recognizes he over treated the low blood sugar with big glasses of juice. He reports bouts of anger and wonders if they are related to blood sugars. 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 INTERVENTION: Discussed characteristics of type 1 and type 2 diabetes as well as type 1.5 diabetes, and role of pancreas. Discussed possible pancreatic/insulin production variations and challenges if this is occurring. Reviewed A1c results and interpretation. He states he has not had any testing related to his insulin production. Reviewed sources of carbohydrate, the food label, and mixing carbohydrate with protein and fat when he eats given he is not on mealtime insulin and eats frequently. Discussed benefits of physical activity including resistance and cardiovascular exercise. Discussed monitoring of blood sugars. Given he does not have health insurance, suggested [employer] brands. If he chooses to do this, suggested we have further conversations regarding how to get helpful feedback. Also discussed CGM professional 7 day trial for him, although he is not taking mealtime insulin at this time and may not qualify if/when he does get insurance. PLAN: He will look at carbohydrate sources in his food choices. He will look into obtaining a glucometer and monitoring his blood sugars. He will carry a source of sugar at all times Time Spent in Nutritional Counseling and Treatment: 25 minutes face to face inpatient
--- NOTE | 2018-12-12 13:42 | PGE_ITS ---
Date of Service Date of service: 12/12/18 Time of Service: 13:28 Assessment and Plan (1) Pancreatitis: Start date: 12/12/18 Start time: 13:40 Current visit: Yes Status: Chronic Pain is better today, lipase this am was 43. Surgery has seen patient and feel he would benefit from EGD. R/o gastritis, gastropariesis. HIDA scan done but not resulted. NPO after MN, ketorlac held for procedure. Glipizide held, lantus changed to 3 units from 6 in the setting of NPO. (2) Diabetes: Start date: 12/12/18 Start time: 13:52 Current visit: Yes Status: Chronic continue lantus, continue to monitor, glucose has been stable under 180's (3) High blood pressure: Start date: 12/12/18 Start time: 13:52 Current visit: Yes Status: Chronic Pt blood pressure has been well over 140's Systolic even in the setting of having no pain. started on 2.5 mg lisinopril. (4) Anxiety: Start date: 12/12/18 Start time: 14:01 Current visit: Yes Status: Chronic PRN Ativan for anxiety while in the hospital., is anxious to go home, understands the plan and agreeable at this time. Melatonin at bedtime. he does have a nervous energy, maybe some underlying psychiatric disorder, should be followed up on outpatient. (5) DVT prophylaxis: Start date: 12/12/18 Start time: 14:01 Current visit: Yes Status: Acute Hold chemical DVT prophylaxis in this 43-year-old ambulatory man. Out of bed ambulating hallway at least QID. Subjective Patient reports: no new complaints Interval history since last seen: Mr. Martinez is a 43. y.o. M with PMH of diabetes, admitted from [facility] emergency department for pancreatitis. He denies alcohol use. CT scan revealing for no abnormalities as is the u/s. His lipase did jump from 600's to 2000's and he was admitted for pain. R/o pancreatitis, vs, gastritis, vs gastroparieses. Today he is having less pain. HIDA scan was done results pending. Surgery has seen patient and feel he needs EGD, thank you. He will have an EGD in the morning. NPO after MN. His lantus dose has been halved since he will be NPO tonight. ketorolac has been held for procedure. He had a negative hemeoccult by hemeoccult card. His blood pressures have been elevated even in the setting of no pain. Lisinopril 2.5 mg has been started. He denies, n/v/d bloody emesis since admission, CP, SOB. Exam Const General: cooperative, healthy appearing and no acute distress Orientation: alert, awake and oriented x3 HENMT Head: normal to inspection Chest Chest: normal inspection of the chest Resp Effort & Inspection: normal respiratory effort and able to speak in complete sentences Auscultation: clear to auscultation bilaterally Cardio Jugular venous pressure: no JVD Palpation: normal PMI Rate: regular rate Rhythm: regular rhythm Heart Sounds: S1 normal and S2 normal GI Inspection: normal to inspection Auscultation: hypoactive bowel sounds Skin General skin exam: no rashes or lesions noted Neuro General: alert, awake and oriented x3 Objective Objective Clinical Data: Abnormal lab results 12/12/18 12/12/18 12/12/18 Range/Units 06:14 06:14 06:14 RBC 4.45 L (4.50-6.00) m/cumm Hgb 13.0 L (13.5-17.5) g/dL Hct 36.8 L (40.0-50.0) % Potassium 3.3 L (3.5-5.1) mmol/L Glucose 188 H (70-100) mg/dL Calcium 8.3 L (8.5-10.1) mg/dL Magnesium 1.6 L (1.8-2.4) mg/dL Vital Signs Temperature 36.5 C 12/12/18 11:57 Temperature Source Tympanic 12/12/18 11:57 Pulse 81 12/12/18 11:57 Pulse Rhythm Regular 12/12/18 09:45 Respiratory Rate 18 12/12/18 11:57 Respiratory Effort 12/12/18 09:45 Respiratory Depth Normal 12/12/18 09:45 Respiratory Pattern Normal 12/12/18 09:45 Blood Pressure 154/91 H 12/12/18 11:57 Blood Pressure Position Supine 12/08/18 10:46 Pulse Oximetry 100 12/12/18 11:57 Oxygen Delivery Method Room Air 12/12/18 11:57 Oxygen Flow Rate 0 12/12/18 11:57 Pain Level 0 12/12/18 07:48 Comment 12/12/18 03:25 Intake & Output 12/11/18 12/12/18 12/12/18 23:59 11:59 23:59 Intake Total 2251.667 / 5348.334 1000 / 1000 Balance 2251.667 / 5348.334 1000 / 1000 Weight 57.9 kg Intake: IV 861.667 / 3708.334 1000 / 1000 Oral 1390 / 1640 Other: Urine Color Yellow Urine Appearance Clear Clear Comment voids indep in br and flushes Voiding Methods Toilet Toilet Laboratory Results WBC 6.97 k/cumm (4.4-10.8) 12/12/18 06:14 RBC 4.45 m/cumm (4.50-6.00) L 12/12/18 06:14 Hgb 13.0 g/dL (13.5-17.5) L 12/12/18 06:14 Hct 36.8 % (40.0-50.0) L 12/12/18 06:14 MCV 82.7 fL (80-95) 12/12/18 06:14 MCH 29.2 pg (27.0-33.0) 12/12/18 06:14 MCHC 35.3 g/dL (32.0-36.0) 12/12/18 06:14 RDW 12.3 % (11.8-14.1) 12/12/18 06:14 Plt Count 261 x1000/uL (130-400) 12/12/18 06:14 MPV 9.6 fL (8.0-11.0) 12/12/18 06:14 Immature Gran % 0.3 12/12/18 06:14 Neutrophils % 53.3 12/12/18 06:14 Lymphocytes % 34.7 12/12/18 06:14 Monocytes % 8.5 12/12/18 06:14 Eosinophils % 2.6 12/12/18 06:14 Basophils % 0.6 12/12/18 06:14 Absolute Neutrophils 3.72 k/cumm (1.2-6.7) 12/12/18 06:14 Absolute Lymphocytes 2.42 k/cumm (1.2-3.4) 12/12/18 06:14 Absolute Monocytes 0.59 k/cumm (0.11-0.7) 12/12/18 06:14 Absolute Eosinophils 0.18 k/cumm (0.0-0.7) 12/12/18 06:14 Absolute Basophils 0.04 k/cumm (0.0-0.2) 12/12/18 06:14 Sodium 141 mmol/L (136-145) 12/12/18 06:14 Potassium 3.3 mmol/L (3.5-5.1) L 12/12/18 06:14 Chloride 104 mmol/L (98-107) 12/12/18 06:14 Carbon Dioxide 26.5 mmol/L (21.0-32.0) 12/12/18 06:14 Anion Gap 10.5 mmol/L (3-11) 12/12/18 06:14 BUN 8 mg/dL (7-18) 12/12/18 06:14 Creatinine 1.03 mg/dL (0.70-1.30) 12/12/18 06:14 Estimated GFR/1.73 m2 >= 60.00 (mL/min/1.73m2) 12/12/18 06:14 Glucose 188 mg/dL (70-100) H 12/12/18 06:14 Hemoglobin A1c 7.6 % (4.5-6.2) H 12/09/18 06:34 Calcium 8.3 mg/dL (8.5-10.1) L 12/12/18 06:14 Magnesium 1.6 mg/dL (1.8-2.4) L 12/12/18 06:14 Total Bilirubin 0.4 mg/dL (0.2-1.0) 12/11/18 07:05 Conjugated Bilirubin 0.10 mg/dL (0.00-0.20) 12/11/18 07:05 AST 34 U/L (15-37) 12/11/18 07:05 ALT 45 U/L (12-78) 12/11/18 07:05 Alkaline Phosphatase 84 U/L (46-116) 12/11/18 07:05 C-Reactive Protein 0.15 mg/dL (0.0-0.3) 12/10/18 11:15 Total Protein 6.9 g/dL (6.4-8.2) 12/11/18 07:05 Albumin 3.6 g/dL (3.4-5.0) 12/11/18 07:05 Triglycerides 140 mg/dL (30-150) 12/09/18 06:34 Total Cholesterol 133 mg/dL (50-200) 12/09/18 06:34 LDL Cholesterol Direct 83 mg/dL (<100) 12/09/18 06:34 HDL Cholesterol 33 mg/dL (40-60) L 12/09/18 06:34 Lipase 94 U/L (73-393) 12/12/18 06:14 Urine Color Yellow (Yellow) 12/08/18 11:24 Urine Clarity Clear 12/08/18 11:24 Urine pH 5.5 (5-8) 12/08/18 11:24 Ur Specific [place] 1.020 (1.005-1.025) 12/08/18 11:24 Urine Protein 30 mg/dL (Negative) H 12/08/18 11:24 Urine Ketones Negative mg/dL (Negative) 12/08/18 11:24 Urine Blood Small (Negative) H 12/08/18 11:24 Urine Nitrite Negative (Negative) 12/08/18 11:24 Urine Bilirubin Negative (Negative) 12/08/18 11:24 Urine Urobilinogen 0.2 EU/dL (Up TO 0.2) 12/08/18 11:24 Ur Leukocyte Esterase Negative (Negative) 12/08/18 11:24 Urine RBC 0-2 (0-2) 12/08/18 11:24 Urine WBC Negative HPF (0-5) 12/08/18 11:24 Ur Epithelial Cells Negative HPF (Negative) 12/08/18 11:24 Urine Crystals Negative HPF (Negative) 12/08/18 11:24 Urine Bacteria Rare HPF (Negative) 12/08/18 11:24 Urine Casts Negative LPF (Negative) 12/08/18 11:24 Urine Mucus Negative (Negative) 12/08/18 11:24 Ur Culture Indicated? No 12/08/18 11:24 Urine Glucose Negative mg/dL (Negative) 12/08/18 11:24
[2018-12-12] MEDS: Potassium Chloride 20 MEQ TABCR 40 MEQ PO (14:40)
--- NOTE | 2018-12-12 15:36 | PDOC.CMPRO ---
Care Management Progress Note S/O: Aldo will meet with [employer] navigator for insurance support either in person or over the phone. He had visitors throughout the day as well as a surgical consult resulting in planned EGD tomorrow morning with likely discharge afterward. CM will continue to follow. A: 43 year old male admitted to [facility] 12/08/18 for Acute Pancreatitis P: Shoaib will discharge home with no anticipated additional services. He will follow up with his PCP and plan of care as prescribed. He will transport home via private vehicle with his significant other, Janelle.
--- NOTE | 2018-12-12 15:55 | CMPROGNOTE_ITS ---
Care Management Progress Note S/O: Aldo will meet with [employer] navigator for insurance support either in person or over the phone. He had visitors throughout the day as well as a surgical consult resulting in planned EGD tomorrow morning with likely discharge afterward. CM will continue to follow. A: 43 year old male admitted to [facility] 12/08/18 for Acute Pancreatitis P: Shoaib will discharge home with no anticipated additional services. He will follow up with his PCP and plan of care as prescribed. He will transport home via private vehicle with his significant other, Janelle.
[2018-12-12 16:17] VITALS: BP 144/82; PULSE 77; RESP 16; TEMP 36.6; O2SAT 96
[2018-12-12] MEDS: Insulin Aspart 300 UNITS/3 ML PEN SC ×2 (16:25→21:48)
[2018-12-12] MEDS: Sucralfate 1 GM TAB PO ×2 (16:26→21:48)
[2018-12-12 20:11] VITALS: BP 136/80; PULSE 94; RESP 17; TEMP 37.2; O2SAT 97
[2018-12-13] VITALS (9 sets, daily range): BP systolic 132–202; BP diastolic 74–115; PULSE 62–77; RESP 14–19; TEMP 36–36.8; O2SAT 96–99
--- NOTE | 2018-12-13 07:00 | PGE_ITS ---
Documented by User: ROMA Harding 12/13/18 07:02 Date of Service Date of service: 12/13/18 Time of Service: 06:56 Assessment and Plan (1) Pancreatitis: Current visit: Yes Status: Chronic (2) Epigastric pain: Current visit: Yes Status: Acute Scheduled for EGD this morning. Continue Carafate and Nexium. Epigastric pain is improving. Tolerated regular diet last night. Labs pending. Disposition: Probable d/c home later today following his EGD. Subjective Interval history since last seen: I was able to eat last night, without any pain. Maybe only some light pressure. Denies nausea, vomiting, fevers or chills. Expressing concern about having an EGD this morning. Reports that he is motivated to make healthier choices when he returns home. Exam Const General: cooperative, healthy appearing and comfortable Orientation: alert and oriented x3 Resp Effort & Inspection: normal respiratory effort, no audible wheezes and no cough Cardio Jugular venous pressure: no JVD GI Inspection: normal to inspection and non-distended Objective Objective Clinical Data: Abnormal lab results 12/12/18 12/12/18 12/12/18 Range/Units 06:14 06:14 06:14 RBC 4.45 L (4.50-6.00) m/cumm Hgb 13.0 L (13.5-17.5) g/dL Hct 36.8 L (40.0-50.0) % Potassium 3.3 L (3.5-5.1) mmol/L Glucose 188 H (70-100) mg/dL Calcium 8.3 L (8.5-10.1) mg/dL Magnesium 1.6 L (1.8-2.4) mg/dL Vital Signs Temperature 36.3 C L 12/13/18 05:46 Temperature Source Tympanic 12/13/18 05:46 Pulse 71 12/13/18 05:46 Pulse Rhythm Regular 12/12/18 20:51 Respiratory Rate 18 12/13/18 05:46 Respiratory Effort 12/12/18 20:51 Respiratory Depth Normal 12/12/18 20:51 Respiratory Pattern Normal 12/12/18 20:51 Blood Pressure 136/74 12/13/18 05:46 Blood Pressure Position Supine 12/08/18 10:46 Pulse Oximetry 99 12/13/18 05:46 Oxygen Delivery Method Room Air 12/13/18 05:46 Oxygen Flow Rate 0 12/13/18 05:46 Pain Level 0 12/12/18 07:48 Comment 12/12/18 03:25 Intake & Output 12/12/18 12/12/18 12/13/18 06:59 18:59 06:59 Intake Total 861.667 / 3501.667 1300 / 2300 1000 / 2300 Balance 861.667 / 3501.667 1300 / 2300 1000 / 2300 Weight 57.9 kg Intake: IV 861.667 / 3785.839 8206 / 2000 1000 / 2000 Oral 300 / 300 Other: Urine Color Yellow Yellow Urine Appearance Clear Clear Clear Urine Odor Normal Comment voids indep in br and flushes Voiding Methods Toilet Toilet Toilet Laboratory Results WBC 6.97 k/cumm (4.4-10.8) 12/12/18 06:14 RBC 4.45 m/cumm (4.50-6.00) L 12/12/18 06:14 Hgb 13.0 g/dL (13.5-17.5) L 12/12/18 06:14 Hct 36.8 % (40.0-50.0) L 12/12/18 06:14 MCV 82.7 fL (80-95) 12/12/18 06:14 MCH 29.2 pg (27.0-33.0) 12/12/18 06:14 MCHC 35.3 g/dL (32.0-36.0) 12/12/18 06:14 RDW 12.3 % (11.8-14.1) 12/12/18 06:14 Plt Count 261 x1000/uL (130-400) 12/12/18 06:14 MPV 9.6 fL (8.0-11.0) 12/12/18 06:14 Immature Gran % 0.3 12/12/18 06:14 Neutrophils % 53.3 12/12/18 06:14 Lymphocytes % 34.7 12/12/18 06:14 Monocytes % 8.5 12/12/18 06:14 Eosinophils % 2.6 12/12/18 06:14 Basophils % 0.6 12/12/18 06:14 Absolute Neutrophils 3.72 k/cumm (1.2-6.7) 12/12/18 06:14 Absolute Lymphocytes 2.42 k/cumm (1.2-3.4) 12/12/18 06:14 Absolute Monocytes 0.59 k/cumm (0.11-0.7) 12/12/18 06:14 Absolute Eosinophils 0.18 k/cumm (0.0-0.7) 12/12/18 06:14 Absolute Basophils 0.04 k/cumm (0.0-0.2) 12/12/18 06:14 Sodium 141 mmol/L (136-145) 12/12/18 06:14 Potassium 3.3 mmol/L (3.5-5.1) L 12/12/18 06:14 Chloride 104 mmol/L (98-107) 12/12/18 06:14 Carbon Dioxide 26.5 mmol/L (21.0-32.0) 12/12/18 06:14 Anion Gap 10.5 mmol/L (3-11) 12/12/18 06:14 BUN 8 mg/dL (7-18) 12/12/18 06:14 Creatinine 1.03 mg/dL (0.70-1.30) 12/12/18 06:14 Estimated GFR/1.73 m2 >= 60.00 (mL/min/1.73m2) 12/12/18 06:14 Glucose 188 mg/dL (70-100) H 12/12/18 06:14 Hemoglobin A1c 7.6 % (4.5-6.2) H 12/09/18 06:34 Calcium 8.3 mg/dL (8.5-10.1) L 12/12/18 06:14 Magnesium 1.6 mg/dL (1.8-2.4) L 12/12/18 06:14 Total Bilirubin 0.4 mg/dL (0.2-1.0) 12/11/18 07:05 Conjugated Bilirubin 0.10 mg/dL (0.00-0.20) 12/11/18 07:05 AST 34 U/L (15-37) 12/11/18 07:05 ALT 45 U/L (12-78) 12/11/18 07:05 Alkaline Phosphatase 84 U/L (46-116) 12/11/18 07:05 C-Reactive Protein 0.15 mg/dL (0.0-0.3) 12/10/18 11:15 Total Protein 6.9 g/dL (6.4-8.2) 12/11/18 07:05 Albumin 3.6 g/dL (3.4-5.0) 12/11/18 07:05 Triglycerides 140 mg/dL (30-150) 12/09/18 06:34 Total Cholesterol 133 mg/dL (50-200) 12/09/18 06:34 LDL Cholesterol Direct 83 mg/dL (<100) 12/09/18 06:34 HDL Cholesterol 33 mg/dL (40-60) L 12/09/18 06:34 Lipase 94 U/L (73-393) 12/12/18 06:14 Urine Color Yellow (Yellow) 12/08/18 11:24 Urine Clarity Clear 12/08/18 11:24 Urine pH 5.5 (5-8) 12/08/18 11:24 Ur Specific [place] 1.020 (1.005-1.025) 12/08/18 11:24 Urine Protein 30 mg/dL (Negative) H 12/08/18 11:24 Urine Ketones Negative mg/dL (Negative) 12/08/18 11:24 Urine Blood Small (Negative) H 12/08/18 11:24 Urine Nitrite Negative (Negative) 12/08/18 11:24 Urine Bilirubin Negative (Negative) 12/08/18 11:24 Urine Urobilinogen 0.2 EU/dL (Up TO 0.2) 12/08/18 11:24 Ur Leukocyte Esterase Negative (Negative) 12/08/18 11:24 Urine RBC 0-2 (0-2) 12/08/18 11:24 Urine WBC Negative HPF (0-5) 12/08/18 11:24 Ur Epithelial Cells Negative HPF (Negative) 12/08/18 11:24 Urine Crystals Negative HPF (Negative) 12/08/18 11:24 Urine Bacteria Rare HPF (Negative) 12/08/18 11:24 Urine Casts Negative LPF (Negative) 12/08/18 11:24 Urine Mucus Negative (Negative) 12/08/18 11:24 Ur Culture Indicated? No 12/08/18 11:24 Urine Glucose Negative mg/dL (Negative) 12/08/18 11:24 Documented by User: Maria Luz Gavin DO 12/13/18 07:19 Assessment and Plan (1) Pancreatitis: Current visit: Yes Status: Chronic pt seen and examined. agree w/ above plan on doing egd today. pt is in agreement Informed consent is obtained for the procedural (explained in simple layman's terms that the pt and/or family could understand) explaining risks vs benefits and alternatives to the procedure and consequences if we do not do the procedure. Risks include but are not limited to:bleeding,infections, pneumonia, blood clots/DVT/PE, anesthesia(aspiration, damage to teeth/airway/OR/CVA//prolonged mechanical ventilation/PTX/IV infections), perforation/aspiration/bleeding/infections
[2018-12-13] MEDS: Lactated Ringers 1,000 ML 125 ML IV (07:25)
[2018-12-13 07:30] LABS: Anion Gap 7.1 mmol/L (3-11); BUN 10 mg/dL (7-18); CO2 27.9 mmol/L (21.0-32.0); CREATININE 0.96 mg/dL (0.70-1.30); Calcium 8.2 mg/dL (8.5-10.1); Chloride 106 mmol/L (98-107); Glucose 179 mg/dL (70-100); Magnesium 1.7 mg/dL (1.8-2.4); Potassium 3.8 mmol/L (3.5-5.1); Sodium 141 mmol/L (136-145)
[2018-12-13 07:33] LABS: Abs Immature Grans 0.03 k/cumm (0.0-0.09); Absolute Basophil Count 0.04 k/cumm (0.0-0.2); Absolute Eosinophil Count 0.19 k/cumm (0.0-0.7); Absolute Lymphocyte Count 2.06 k/cumm (1.2-3.4); Absolute Monocyte Count 0.71 k/cumm (0.11-0.7); Absolute Neutrophil Count 4.22 k/cumm (1.2-6.7); Basophils % 0.6; Eosinophils % 2.6; HCT 38.2 % (40.0-50.0); HGB 13.4 g/dL (13.5-17.5); Immature Grans % 0.4; Lymphocytes % 28.4; Mean Corp. HGB Concentration 35.1 g/dL (32.0-36.0); Mean Corpuscular Volume 82.7 fL (80-95); Mean Platelet Volume 9.6 fL (8.0-11.0); Monocytes % 9.8; Neutrophils % 58.2; Platelet Count 280 x1000/uL (130-400); RBC 4.62 m/cumm (4.50-6.00); RBC Distribution Width 12.4 % (11.8-14.1); White Blood Cell Count 7.25 k/cumm (4.4-10.8)
--- NOTE | 2018-12-13 07:45 | STOM_PTH ---
PATIENT: Aldo Martinez I II LOC: U#:[id number] AGE/SX: 43/M ROOM: [id number] RE12/08/[address]: Leonor Clark : 1975 BED: A DIS: 12/13/2018 SPEC #: [id number] RECD: 12/13/18 12:33 STATUS: SHERITA REQ #: [id number] HUMBERTO: 12/13/18 07:[address]: Bernardo Morejon DEPT: Surgical Specimen RECD BY: Sara Pickens ENTERED: 12/13/18 12:36 SP TYPE: STOMACH OTHR DR: MD Brayan Smiley John Tissues: 1 - BIOPSY BOWEL 2 - STOMACH BIOPSY 3 - STOMACH BIOPSY 4 - ESOPHAGUS BIOPSY 5 - ESOPHAGUS BIOPSY Procedures: GROSS AND MICRO LEVEL 4 IMMUNOPEROXIDASE STAIN Comments: [id number]
--- NOTE | 2018-12-13 07:54 | W.PM.ENDDOP ---
Date of service: 12/13/18 Time of Service: 07:55 Endoscopy Report DATE OF PROCEDURE: 12/13/18 PRE-OP DIAGNOSIS: pancreatitis POST-OP DIAGNOSIS: same PROCEDURE: egd w/ bx SURGEON: Maria Luz Gavin ANESTHESIA: GETA ESTIMATED BLOOD LOSS: 2 PATHOLOGY: other COMPLICATIONS: None DISPOSITION: PACU INDICATIONS: pancreatitis FINDINGS: see ntoe PROCEDURE DESCRIPTION: After informed consent was obtained the patient was take to the procedure room and placed in a supine position. Monitors were applied and a time out was done. The patients name, date of , procedure type, allergies to medications and metal in their body was reviewed. A bite block was placed and the patient was sedated. Once sedated and comfortable the gastroscope was advanced through the oropharynx which was grossly normal into the esophagus. The proximal and mid-esophagus were nl. In the distal esophagus there was nl noted. The scope was advanced into the stomach and through the pylorus into the 3rd portion of the duodenum. The duodenum was noted to be nl. Biopsies were done - all specimen retrieved and no bleeding noted. The scope was retracted back into the stomach and biopsies were done to rule out H. pylori. There were no ulcers- mild redness diffusely. The scope was retroflexed. The cardia and fundus shows some minimal redness. There is no hiatal hernia noted. The scope was retracted back into the esophagus and biopsies were done of the GE junction to rule out Diaz's. The Z line was regular. The GE junction was at 38 cm. The scope was removed and the patient was woken up and taken back to [facility] in stable condition. essentially normal exam. Follow up:
--- NOTE | 2018-12-13 07:57 | ENDO_ITS ---
Date of service: 12/13/18 Time of Service: 07:55 Endoscopy Report DATE OF PROCEDURE: 12/13/18 PRE-OP DIAGNOSIS: pancreatitis POST-OP DIAGNOSIS: same PROCEDURE: egd w/ bx SURGEON: Maria Luz Gavin ANESTHESIA: GETA ESTIMATED BLOOD LOSS: 2 PATHOLOGY: other COMPLICATIONS: None DISPOSITION: PACU INDICATIONS: pancreatitis FINDINGS: see ntoe PROCEDURE DESCRIPTION: After informed consent was obtained the patient was take to the procedure room and placed in a supine position. Monitors were applied and a time out was done. The patients name, date of , procedure type, allergies to medications and metal in their body was reviewed. A bite block was placed and the patient was sedated. Once sedated and comfortable the gastro scope was advanced through the oropharynx which was grossly normal into the esophagus. The proximal and mid-esophagus were nl. In the distal esophagus there was nl noted. The scope was advanced into the stomach and through the pylorus into the 3rd portion of the duodenum. The duodenum was noted to be nl. Biopsies were done - all specimen retrieved and no bleeding noted. The scope was retracted back into the stomach and biopsies were done to rule out H. pylori. There were no ulcers- mild redness diffusely. The scope was retroflexed. The cardia and fundus shows some minimal redness. There is no hiatal hernia noted. The scope was retracted back into the esophagus and biopsies were done of the GE junction to rule out Diaz's. The Z line was regular. The GE junction was at 38 cm. The scope was removed and the patient was woken up and taken back to [facility] in stable condition. essentially normal exam. Follow up:
[2018-12-13] MEDS: Lisinopril 5 MG TAB 2.5 MG PO (08:53)
[2018-12-13] MEDS: Normal Saline Flush 10 ML SYR IVP (08:53)
[2018-12-13] MEDS: Sucralfate 1 GM TAB PO ×2 (08:53→11:51)
[2018-12-13] MEDS: Insulin Aspart 300 UNITS/3 ML PEN SC ×2 (10:29→11:50)
--- NOTE | 2018-12-13 12:40 | W.PM.DS.N ---
Date of service: 12/13/18 Time of Service: 12:40 DS: Diagnosis Discharge Diagnosis (1) Pancreatitis: Status: Chronic (2) Diabetes: Status: Chronic (3) Epigastric pain: Status: Acute (4) High blood pressure: Status: Chronic Discharge Plan Disposition Patient Disposition: HOME Condition: Stable Discharge Details Reason For Visit: ACUTE PANCREATITIS Admit Date/Time: 12/08/18 14:43 Admit Provider: Bernardo Morejon Attending Provider: Bernardo Morejon Primary Care Provider: Kaushal Schmidt [facility] Course: Mr. Martinez is a 43 year old man with a past medical history significant for insulin dependent diabetes who presented to the ED on 12/08/18 with abdominal pain and a history of vomiting with hematemesis one week prior. He was found to have an elevated lipase and was treated for pancreatitis. His presentation was also suspicious for gastritis and he was started on BID PPI therapy. The day following his admission his lipase was found to be higher, he was treated with bowel rest and IV fluids. His diet was advanced and he continued to have pain after eating. He was seen by General surgery. He went on to have a HIDA scan which was normal. He had an EGD which showed mild diffuse redness and biopsies were taken. This could possibly represent healing since he was on BID PPI x6 days by the time he had the EGD. He was able to tolerate a diet. Follow up lipase revealed normal level. He will be discharged home on BID PPI therapy. He was seen by Hydro Technician, Lise Sarah who provided education on diabetes and management of diabetes. She suggested the possibility of CGM professional 7 day trial for him. She also suggested that he obtain a glucometer and begin monitoring blood sugars. He is in agreement with initiating better diabetes management. He will be provided with a prescription for a glucometer to facilitate this process. He was previously on glipizide, this has been held and will not be restarted upon discharge, he will follow up with his PCP on whether to restart Glipizide as an outpatient. He was noted to have hypertension and was started on low dose lisinopril with mild improvement in his blood pressure readings. He will be discharged home on lisinopril. He did not have health insurance at the time of his presentation. He worked with [facility] while he was a patient in the hospital and now has insurance. He will follow up with his PCP and General surgery. Home Meds and New Rx's Prescriptions: New sucralfate 1 gram Tablet 1 g PO AC & HS Qty: 120 RF: 0 lisinopril 5 mg Tablet 5 mg PO DAILY Qty: 30 RF: 0 omeprazole 40 mg capsule,delayed release(DR/EC) 40 mg PO BID Qty: 30 RF: 0 Continued metformin [Glucophage] 1,000 MG tablet 1,000 mg PO BID RF: 0 Lantus Solostar U-100 Insulin 100 UNIT/ML insulin pen 10 units Sub-Q HS RF: 0 Discontinued glipizide 10 MG tablet 10 mg PO DAILY RF: 0 Discharge Instructions Instructions: Diet for Stomach Ulcers and Gastritis (GEN), Diabetes Mellitus Type 2 in Adults (DC) Additional Instructions: Monitor your blood sugar before meals and at bedtime. Keep track of your blood sugars and bring it to your PCP office. Stop taking Glipizide. Maintain a low acid diet and diabetic diet. Follow up with your PCP and general surgery as scheduled. Take care! Stand Alone Forms: Nursing Discharge Form Referrals: Kaushal Schmidt [Primary Care Provider] - 12/19/18 11:00 am Maria Luz Gavin DO [OSTEOPATHIC DOCTOR] - 12/19/18 3:30 pm Activity:: Activity as Tolerated Equipment/Supplies:: Blood Glucose Monitor Diet:: Carb Counting Discharge Orders Discharge Orders: Discharge Order (Routine); Ordered 12/13/18 Ordered By: La Auguste Exam Narrative Exam Narrative: General: Well-appearing 43-year-old man, sitting up at the edge of the bed, in no acute distress, conversant, answering questions appropriately. HEENT: Normocephalic, atraumatic, mucous membranes moist. Pupils equal and round Neck: Supple, no JVD. Respiratory: Respirations even and unlabored, lung sounds with few scattered wheezes bilaterally. Cardiovascular: Heart has regular rate and rhythm, no murmur appreciated. Gastrointestinal: Normoactive bowel sounds, no tenderness on palpation. Abdomen is nondistended. Extremities: Well perfused, no clubbing, cyanosis or edema. DS: Data Vitals/I&O Vitals and I&O: Vital Signs Temperature 36.3 C L 12/13/18 11:37 Temperature Source Tympanic 12/13/18 11:37 Pulse 77 12/13/18 11:37 Pulse Rhythm Regular 12/13/18 09:15 Respiratory Rate 18 12/13/18 11:37 Respiratory Effort 12/13/18 09:15 Respiratory Depth Normal 12/13/18 09:15 Respiratory Pattern Normal 12/13/18 09:15 Blood Pressure 172/92 H 12/13/18 11:37 Blood Pressure Position Supine 12/08/18 10:46 Pulse Oximetry 98 12/13/18 11:37 Oxygen Delivery Method Room Air 12/13/18 11:37 Oxygen Flow Rate 0 12/13/18 11:37 Pain Level 0 12/13/18 08:58 Comment 12/12/18 03:25 Intake & Output 12/12/18 12/13/18 12/13/18 23:59 11:59 23:59 Intake Total 1300 / 2300 2250 / 2250 Balance 1300 / 2300 2250 / 2250 Intake: IV 1000 / 2000 1999 / 1999 Oral 300 / 300 250 / 250 Other: Urine Color Yellow Urine Appearance Clear Clear Urine Odor Normal Comment independantly Emesis Description None Voiding Methods Toilet Toilet Completed studies during hospitalization [Text1]: 12/08/18: ABDOMEN AND PELVIC CT: A CT examination of the abdomen and pelvis was performed following the intravenous infusion of 84 cc's of Omnipaque 350 and the ingestion of oral contrast. The liver and spleen are normal in size and shape with no evidence of any focal defects. There is no evidence of biliary dilatation. The gallbladder has a normal CT appearance. The pancreas appears intact and is not enlarged. There is no evidence of retroperitoneal lymphadenopathy. The bladder appears intact. The kidneys show bilateral function and there is no evidence of a renal mass. The vascular structures appear intact. There is no evidence of a mass in the pelvis. There is no evidence of a fluid collection or adenopathy. CONCLUSION: Normal abdominal and pelvic CT. LIMITED ABDOMINAL ULTRASOUND: The gallbladder is normal. There is no evidence of gallstones. There is no evidence of ductal dilatation. The head of the pancreas appears intact. The body and tail are not seen. SUMMARY: There is no evidence of gallstones or biliary dilatation. The head of the pancreas is acoustically normal and there is no evidence of free fluid. 12/12/18: HEPATOBILIARY SCAN: The patient received 4.8 millicuries of Technetium 99 Mebrofenin. The liver, bile ducts, gallbladder and small bowel were visualized at the appropriate time interval. IMPRESSION: Normal hepatobiliary scan. 12/13/18: EGD PROCEDURE DESCRIPTION: After informed consent was obtained the patient was take to the procedure room and placed in a supine position. Monitors were applied and a time out was done. The patients name, date of , procedure type, allergies to medications and metal in their body was reviewed. A bite block was placed and the patient was sedated. Once sedated and comfortable the gastroscope was advanced through the oropharynx which was grossly normal into the esophagus. The proximal and mid-esophagus were nl. In the distal esophagus there was nl noted. The scope was advanced into the stomach and through the pylorus into the 3rd portion of the duodenum. The duodenum was noted to be nl. Biopsies were done - all specimen retrieved and no bleeding noted. The scope was retracted back into the stomach and biopsies were done to rule out H. pylori. There were no ulcers- mild redness diffusely. The scope was retroflexed. The cardia and fundus shows some minimal redness. There is no hiatal hernia noted. The scope was retracted back into the esophagus and biopsies were done of the GE junction to rule out Diaz's. The Z line was regular. The GE junction was at 38 cm. The scope was removed and the patient was woken up and taken back to [facility] in stable condition. essentially normal exam. Labs on day of discharge: Labs from last 24 hours 12/13/18 12/13/18 06:20 06:20 WBC 7.25 RBC 4.62 Hgb 13.4 L Hct 38.2 L MCV 82.7 MCH 29.0 MCHC 35.1 RDW 12.4 Plt Count 280 MPV 9.6 Immature Gran % 0.4 Neutrophils % 58.2 Lymphocytes % 28.4 Monocytes % 9.8 Eosinophils % 2.6 Basophils % 0.6 Absolute Neutrophils 4.22 Absolute Lymphocytes 2.06 Absolute Monocytes 0.71 H Absolute Eosinophils 0.19 Absolute Basophils 0.04 Sodium 141 Potassium 3.8 Chloride 106 Carbon Dioxide 27.9 Anion Gap 7.1 BUN 10 Creatinine 0.96 Estimated GFR/1.73 m2 >= 60.00 Glucose 179 H Calcium 8.2 L Magnesium 1.7 L PFS Medical History Diabetes (Chronic) Surgical History History of dental surgery (Acute) H/O elbow surgery (Acute) Family History Mother Diabetes Social History Smoking/Tobacco Use Status: Never Alcohol Intake: never Drug use: Daily Substance use type: marijuana Do you feel safe at home: Yes Do you feel safe in your relationship?: Yes
--- NOTE | 2018-12-13 13:35 | PDOC.CMDIS ---
- If Service Date Differs Date of service: 12/13/18 Time of Service: 13:35 LACE Index Scoring Tool - Questions: Length of Stay (in days): 4 - 6 Acuity (Admit via E.D.?): Yes Comorbidities: Diabetes w/o Complication E.D. Visits: 1 - Answers: Total Score: 9 Risk of Readmission: Low Risk Care Management Discharge Reason for Hospitalization: Pancreatitis Discharge Plan: Heather will return home today with no services. He met with [employer] today in regards to insurance purposes and heather will continue to work with them in the community. He will F/U with PCP and plan of care as prescribed. Patient/Family Education Needs: Review DC instructions, any limitations, and discuss 'Ask Me three'
--- NOTE | 2018-12-13 15:08 | W.INDIABCONS ---
Date of service: 12/13/18 Time of Service: 15:08 Diabetes Inpatient Consult DESCRIPTION/ASSESSMENT: Met with Mr. Martinez prior to discharge. We discussed his insulin management and understands one reason he has done well managing diabetes is because he is physically active all day. INTERVENTION: Explained action of 2 kinds of insulins. He plans to resume his 10units basal insulin and watch carbohydrate intake and feels motivated to take care of diabetes. Discussed stressors for which he has a plan to address upon discharge. PLAN: He will f/u with his PCP and will return for outpatient DSME with provider request. He looks forward to using a CGM to see what happens to him during the day. Time Spent in Nutritional Counseling and Treatment: 15 minutes face to face inpatient
== END 2018-12-13 13:47 | disposition home or self-care (01) | DRG 440 ==
LOC: ER 15:25 → MS 17:02
PROVIDERS: Nurse Practitioner; Nurse Practitioner Family; Surgery; Admitting Provider Internal Medicine; Emergency Provider Physician Assistant; PCP Family Medicine; Visit Provider Internal Medicine
PROC: 0DJ68ZZ Inspection of Stomach, Via Natural or Artificial Opening Endoscopic (ICD-10-PCS; CPT 43235; principal; 2018-12-13 07:30)
DX: K85.90 Acute pancreatitis without necrosis or infection, unspecified (principal); R10.13 Epigastric pain; K29.80 Duodenitis without bleeding; K29.50 Unspecified chronic gastritis without bleeding; K22.70 Barrett's esophagus without dysplasia; K21.0 Gastro-esophageal reflux disease with esophagitis; Z79.4 Long term (current) use of insulin; E11.9 Type 2 diabetes mellitus without complications; Z59.7 Insufficient social insurance and welfare support; F41.9 Anxiety disorder, unspecified; Z91.19 Patient's noncompliance with other medical treatment and regimen
CPT/HCPCS: 43239; 36415; 78227; 80048; 80053; 80061; 80076; 83690; 83721; 85027; 88305; 96361; 96365; 99222; 99232; 99233; 99239; 99252; 99285; 74177; 76705; 81003; 81015; 83036; 83735; 85025; 86140; 88361; 99284; G0378; J1885; J2405; J3490

== ENCOUNTER 2019-03-22 15:04 | Emergency (ER) | payer MEDICAID, SELFPAY ==
[2019-03-22 15:15] VITALS: BP 127/110; PULSE 80; RESP 16; TEMP 36.7; O2SAT 98
--- NOTE | 2019-03-22 15:34 | DI.CT_ITS ---
SYMPTOM/DIAGNOSIS: LUQ ABD PAIN CT ABDOMEN AND PELVIS: The study was carried out with an intravenous injection of 100 cc Omnipaque 350. The lung bases are unremarkable. The liver appears intact with note made of mild fatty infiltration. There are no gallstones or thickening of the gallbladder wall or pericholecystic fluid. There is no ductal dilatation. The pancreas and spleen are unremarkable. The adrenals are unremarkable. The kidneys are intact. There is no evidence of bowel obstruction however, the study is limited in the absence of oral contrast enhancement. There is no evidence of obstruction or pneumatosis. As visualized, the pancreas appears unremarkable. There are no findings to suggest an acute appendix. There is no free air or free fluid in the intraperitoneal space. There is no evidence of an aortic aneurysm. There is no evidence of a mass or lymphadenopathy. The bladder is unremarkable. The reproductive organs as visualized are unremarkable. No acute bony abnormality is seen. The soft tissues are unremarkable. The images are suboptimal due to patient motion. SUMMARY: There is no evidence of an acute abdomen.
--- NOTE | 2019-03-22 15:36 | ED.GENADUL_ITS ---
Discharge Plan Disposition Patient Disposition: HOME Condition: Improving Discharge Details Chief Complaint: Abd Prob Clinical Impression: Pancreatitis Primary Care Provider: Kaushal Schmidt ED Provider: Marlin Samayoa Home Meds and New Rx's Prescriptions: New oxycodone 5 mg tablet 5 mg PO Q6H PRN (Reason: pain) Qty: 5 RF: 0 omeprazole 20 mg capsule,delayed release(DR/EC) 20 mg PO DAILY Qty: 20 RF: 0 Continued metformin [Glucophage] 1,000 MG tablet 1,000 mg PO BID RF: 0 Lantus Solostar U-100 Insulin 100 UNIT/ML insulin pen 10 units Sub-Q HS RF: 0 sucralfate 1 gram Tablet 1 g PO AC & HS Qty: 120 RF: 0 lisinopril 5 mg Tablet 5 mg PO DAILY Qty: 30 RF: 0 omeprazole 40 mg capsule,delayed release(DR/EC) 40 mg PO BID Qty: 30 RF: 0 Discharge Instructions Instructions: Pancreatitis (ED), Clear Liquid Diet (ED) Additional Instructions: Continue to encourage hydration. Please stick with a clear liquid diet diet for the next 48 hours. You will need to follow-up with your primary care within the next 48 hours, please call tomorrow to schedule appointment. If you develop fever/chills, inability stay hydrated, increased pain, vomiting or other new/worsening symptoms please seek care urgently once again. If your pain recurs, you may use the oxycodone as prescribed. Please take this only as prescribed and keep this in a safe place away from children. No alcohol. Please begin taking omeprazole daily once again. Referrals: Kaushal Schmidt [Primary Care Provider] - Discharge Data Discharge Date/Time-TO BE ENTERED AT DEPARTURE: 03/22/19 19:10 Medical Decision Making <Eduardo Dumont NP - Last Filed: 03/23/19 21:09> Patient presenting to the emergency department for chief complaint of abdominal pain. Patient states that this is similar to previous episodes of his pancreatitis and this discomfort is been going on for the last 2 weeks. He stated some mild gastritis and GERD issues but of also been occurring. He does report that he has been taking his Lantus and metformin but not his lisinopril. While he states that this is been occurring for 2 weeks he does state that 2 or 3 days ago his dog and he did have approximately 8 beers tonight that the dog but states that that and food intake did not worsen his symptoms. Review of vital signs shows some hypertension otherwise are unremarkable. Physical exam shows left upper quadrant tenderness otherwise unremarkable physical exam. Plan to check labs and CT imaging given patient's history. <ROMA Hogan - Last Filed: 03/22/19 20:04> Care transition to myself from Eduardo Dumont NP with imaging and labs pending. Patient is resting comfortably in the room. Labs significant for a lipase of 566. Reviewed the labs, patient has been normal at the time of discharge but prior to that was over 1999. Glucose is 300. BUN is elevated at 22. Labs are otherwise unremarkable. My and she was discharged she is no use subsided for the last but she did she is she she is patient is CT reviewed by radiologist: FINDINGS: Lungs: Lung bases are clear. Pleural effusion is not seen. Liver: No focal intrahepatic abnormality is identified. There is mild fatty infiltration of the liver. Gallbladder and bile ducts: No calcified gallstones. No gallbladder wall thickening, pericholecystic fluid or biliary ductal dilatation. Pancreas: Pancreas is unremarkable Spleen: Spleen is unremarkable Adrenals: Adrenals are unremarkable Kidneys and ureters: No radiopaque calculi. No hydronephrosis. Stomach and bowel: Evaluation of the bowel is limited in the absence of oral and IV contrast but no significant abnormality is identified. There is no evidence of obstruction, mass or pneumatosis. Intraperitoneal space: No free fluid focal collections or free air Vasculature: Aorta is non-aneurysmal Lymph nodes: No significant adenopathy is identified. Bladder: Bladder is unremarkable Reproductive: Unremarkable as visualized, no significant interval change Bones/joints: There is no acute bony abnormality Soft tissues: Subcutaneous soft tissues are unremarkable Other findings: Images are mildly degraded by motion IMPRESSION: No acute findings. Reevaluated the patient. He continues to have LUQ pain on palpation but no peritoneal findings. He is laughing and appears to be in no discomfort. Has not received fluids thus far as he was tolerating PO intake well. As he has pancreatitis, will give IV fluids and consult with general surgeon. Patient feels that he is able to go home. Consulted with Dr. Hauser. Reviewed case. She advised that if the CT is negative, as his is, and he is tolerating PO fluids, he could be discharged home with prompt f/u with PCP. Patient is appropriate, his is with him at this point. They are able to return with worsening symptoms. His is concerned that in recent nights his discomfort has made it difficult for him to sleep, will prescribe a few oxycodone to use if pain is unable to be controlled with other measures. Discussed usage and safe storage. Advised he will need to be reevaluated in the next 48 hours. Given strict return precautions. At patient request reviewed his previous EGD with him, he has stopped his omeprazole, advised he needs to begin this once again. All of his questions and concerns ere addressed, he is in agreement with this plan. Will stay home and rest for the rest of the week. HPI <Eduardo Dumont NP - Last Filed: 03/23/19 21:09> General Mode of arrival: ambulatory . Date/Time Provider Initiated Documentation: 03/22/19 15:09 . Limitations to Documentation: no limitations . Information obtained by: patient and RN notes reviewed . History of Present Illness 43 year old M presents to the emergency department with the chief complaint of Abdominal pain, described as moderate and similar to prior episodes, with intensity rated at 7. Quality is described as sharp, and is localized to the abdomen. Patient started experiencing this week(s) (2) and it has been constant. No relieving factors improve symptom(s), No exacerbating factors reported . Patient notes no other symptoms.. Patient did receive the following treatments prior to arrival, none Related Data Home Medications Medication Instructions Recorded Confirmed metformin [Glucophage] 1,000 mg PO BID 07/12/14 03/22/19 Lantus Solostar U-100 Insulin 10 units SUB-Q HS 12/26/16 03/22/19 lisinopril 5 mg PO DAILY #30 tab 12/13/18 03/22/19 omeprazole 40 mg PO BID #30 cap 12/13/18 03/22/19 sucralfate 1 g PO AC & HS #120 tab 12/13/18 03/22/19 omeprazole 20 mg PO DAILY #20 cap 03/22/19 oxycodone 5 mg PO Q6H PRN #5 tab 03/22/19 Previous Rx's Medication Instructions Recorded lisinopril 5 mg PO DAILY #30 tab 12/13/18 omeprazole 40 mg PO BID #30 cap 12/13/18 sucralfate 1 g PO AC & HS #120 tab 12/13/18 omeprazole 20 mg PO DAILY #20 cap 03/22/19 oxycodone 5 mg PO Q6H PRN #5 tab 03/22/19 Allergies Allergy/AdvReac Type Severity Reaction Status Date / Time No Known Allergies Allergy Verified 03/22/19 15:21 General Stated Complaint: Abd Prob MARYURI: 3 Review of Systems <Eduardo Dumont NP - Last Filed: 03/23/19 21:09> Constitutional Denies chills, Denies fever(s) and Reports poor appetite Cardiovascular Denies chest pain and Denies dyspnea Respiratory Denies cough and Denies dyspnea Gastrointestinal Reports as per HPI, Reports abdominal pain, Denies melena, Denies change in bowel habits, Denies constipation, Denies diarrhea, Denies nausea and Denies vomiting Genitourinary Denies hematuria, Denies difficulty urinating, Denies flank pain, Denies urinary hesitancy, Denies urinary incontinence and Denies urinary urgency Integumentary/Breasts Denies rash PFSH <Eduardo Dumont NP - Last Filed: 03/23/19 21:09> Medical History Diabetes (Chronic) Surgical History H/O elbow surgery (Acute) History of dental surgery (Acute) History of esophagogastroduodenoscopy (EGD) (Resolved) Family History Mother Diabetes Social History Smoking/Tobacco Use Status: Never Alcohol Intake: never Drug use: Daily Substance use type: marijuana Do you feel safe at home: Yes Do you feel safe in your relationship?: Yes Exam <Eduardo Dumont NP - Last Filed: 03/23/19 21:09> Const General: cooperative Orientation: alert, awake and oriented x3 Resp Effort & Inspection: normal respiratory effort and able to speak in complete sentences Auscultation: clear to auscultation bilaterally Cardio Rate: regular rate Rhythm: regular rhythm Heart Sounds: S1 normal and S2 normal GI Palpation: soft, no hepatosplenomegaly, not firm, no guarding, no masses, no pulsatile masses, not rigid, no splenomegaly and tender in the LUQ; not at McBurney's point, Rocha's sign negative and Rovsing's sign negative Auscultation: normal bowel sounds Back/Spine/Pelvis Back: no CVA tenderness Neuro General: alert, awake, oriented x3, gait normal and moves all extremities Course <Eduardo Dumont NP - Last Filed: 03/23/19 21:09> Vital Signs Temperature 36.7 C 03/22/19 15:15 Pulse 80 03/22/19 15:15 Respiratory Rate 16 03/22/19 15:15 Blood Pressure 127/110 H 03/22/19 15:15 Pulse Oximetry 98 03/22/19 15:15 Temperature 36.7 C 03/22/19 15:15 Pulse 80 03/22/19 15:15 Respiratory Rate 16 03/22/19 15:15 Respiratory Effort 03/22/19 15:20 Blood Pressure 127/110 H 03/22/19 15:15 Blood Pressure Position Sitting 03/22/19 15:15 Pulse Oximetry 98 03/22/19 15:15 Oxygen Delivery Method Room Air 03/22/19 15:15 Oxygen Flow Rate 0 03/22/19 15:15 Pain Level 7 03/22/19 15:15 Sign Out <Eduardo Dumont NP - Last Filed: 03/23/19 21:09> Sign Out Data: Sign Out Comment: Patient signed out to ROMA Pablo pending labs and CT imaging Last updated by Eduardo Dumont NP at 03/22/19 16:01
[2019-03-22 15:45] LABS: Abs Immature Grans 0.02 k/cumm (0.0-0.09); Absolute Basophil Count 0.07 k/cumm (0.0-0.2); Absolute Eosinophil Count 0.11 k/cumm (0.0-0.7); Absolute Lymphocyte Count 3.31 k/cumm (1.2-3.4); Absolute Monocyte Count 0.53 k/cumm (0.11-0.7); Absolute Neutrophil Count 4.06 k/cumm (1.2-6.7); Basophils % 0.9; Eosinophils % 1.4; HCT 40.1 % (40.0-50.0); HGB 14.3 g/dL (13.5-17.5); Immature Grans % 0.2; Lymphocytes % 40.9; Mean Corp. HGB Concentration 35.7 g/dL (32.0-36.0); Mean Corpuscular Hemoglobin 29.5 pg (27.0-33.0); Mean Corpuscular Volume 82.7 fL (80-95); Mean Platelet Volume 9.5 fL (8.0-11.0); Monocytes % 6.5; Neutrophils % 50.1; Platelet Count 247 x1000/uL (130-400); RBC 4.85 m/cumm (4.50-6.00); RBC Distribution Width 11.9 % (11.8-14.1)
[2019-03-22 16:03] LABS: ALT 45 U/L (12-78); AST 27 U/L (15-37); Alkaline Phosphatase 85 U/L (46-116); Anion Gap 7.6 mmol/L (3-11); BUN 22 mg/dL (7-18); Bilirubin, Total 0.5 mg/dL (0.2-1.0); CO2 28.4 mmol/L (21.0-32.0); CREATININE 1.12 mg/dL (0.70-1.30); Calcium 9.5 mg/dL (8.5-10.1); Chloride 100 mmol/L (98-107); Glucose 301 mg/dL (70-100); Lipase 566 U/L (73-393); Potassium 4.7 mmol/L (3.5-5.1); Sodium 136 mmol/L (136-145); Total Protein 7.2 g/dL (6.4-8.2)
[2019-03-22 16:10] LABS: Troponin I < 0.05 ng/mL (0.00-0.06)
--- NOTE | 2019-03-22 17:08 | DI.VRAD_ITS ---
EXAM: CT Abdomen and Pelvis With Contrast EXAM DATE/TIME: 03/22/2019 3:36 PM CLINICAL HISTORY: 43 years old, male; Abdominal pain; Localized; Left upper quadrant (luq) TECHNIQUE: Imaging protocol: Axial computed tomography images of the abdomen and pelvis with intravenous contrast. Coronal and sagittal reformatted images were created and reviewed. Radiation optimization: All CT scans at this facility use at least one of these dose optimization techniques: automated exposure control; mA and/or kV adjustment per patient size (includes targeted exams where dose is matched to clinical indication); or iterative reconstruction. Contrast material: OMNIPAQUE 350; Contrast volume: 100 ml; Contrast route: IV; COMPARISON: CT Abdomen^ROUTINE ABDOMEN PELVIS WITH CONTRAST (Adult) 12/08/2018 8:43 PM FINDINGS: Lungs: Lung bases are clear. Pleural effusion is not seen. Liver: No focal intrahepatic abnormality is identified. There is mild fatty infiltration of the liver. Gallbladder and bile ducts: No calcified gallstones. No gallbladder wall thickening, pericholecystic fluid or biliary ductal dilatation. Pancreas: Pancreas is unremarkable Spleen: Spleen is unremarkable Adrenals: Adrenals are unremarkable Kidneys and ureters: No radiopaque calculi. No hydronephrosis. Stomach and bowel: Evaluation of the bowel is limited in the absence of oral and IV contrast but no significant abnormality is identified. There is no evidence of obstruction, mass or pneumatosis. Appendix: There are no findings to suggest acute appendicitis Intraperitoneal space: No free fluid focal collections or free air Vasculature: Aorta is non-aneurysmal Lymph nodes: No significant adenopathy is identified. Bladder: Bladder is unremarkable Reproductive: Unremarkable as visualized, no significant interval change Bones/joints: There is no acute bony abnormality Soft tissues: Subcutaneous soft tissues are unremarkable Other findings: Images are mildly degraded by motion IMPRESSION: No acute findings. Dictated and Authenticated by: Rhonda Rodrigues MD. Ordering:SLIME Clark MD
[2019-03-22] MEDS: Normal Saline 1,000 ML 1000 ML IV (17:29)
[2019-03-22 19:06] VITALS: BP 138/91; PULSE 76; RESP 16; O2SAT 100
== END 2019-03-22 19:10 | disposition home or self-care (01) ==
PROVIDERS: Nurse Practitioner Family; Emergency Provider Physician Assistant; PCP Family Medicine
DX: K85.90 Acute pancreatitis without necrosis or infection, unspecified (principal); E11.9 Type 2 diabetes mellitus without complications
CPT/HCPCS: 36415; 80053; 83690; 96360; 99285; 74177; 84484; 85025; 99284

== ENCOUNTER 2019-03-24 11:36 | Outpatient (CLI) | payer MEDICAID, SELFPAY ==
[2019-03-24 13:22] LABS: Lipase 140 U/L (73-393)
== END 2019-03-24 11:56 ==
PROVIDERS: PCP Family Medicine; Visit Provider Family Medicine
DX: Z87.19 Personal history of other diseases of the digestive system (principal)
CPT/HCPCS: 36415; 83690

== ENCOUNTER 2019-09-04 10:09 | Outpatient (REF) | payer MEDICAID, SELFPAY ==
[2019-09-04 13:43] LABS: COMMENT (LAB VIEW ONLY) 102.97 mg/dL; Microalb ug/mg Crea 72.2 ug/mg Cr
== END 2019-09-04 10:29 ==
LOC: NCHCN 10:09
PROVIDERS: PCP Family Medicine; Visit Provider Family Medicine
DX: E11.9 Type 2 diabetes mellitus without complications (principal)
CPT/HCPCS: 82043; 82570

== ENCOUNTER 2020-07-02 16:22 | Outpatient (REF) | payer MEDICAID, SELFPAY ==
[2020-07-02 18:34] LABS: ALT 48 U/L (16-63); AST 33 U/L (15-37); Alkaline Phosphatase 85 U/L (46-116); Anion Gap 4.4 mmol/L (3-11); BUN 14 mg/dL (7-18); Bilirubin, Total 0.4 mg/dL (0.2-1.0); CO2 30.6 mmol/L (21.0-32.0); CREATININE 1.13 mg/dL (0.70-1.30); Calcium 9.3 mg/dL (8.5-10.1); Chloride 103 mmol/L (98-107); Glucose 110 mg/dL (74-106); Lipase 239 U/L (73-393); Potassium 4.7 mmol/L (3.5-5.1); Sodium 138 mmol/L (136-145); Total Protein 6.9 g/dL (6.4-8.2)
[2020-07-09 12:19] LABS: Hepatitis B Surface Ag Negative (Negative); Hepatitis C Ab w Rflx HCV PCR Negative (Negative)
[2020-07-09 12:20] LABS: HIV-1/2 Ag & Ab Screen Negative (Negative)
== END 2020-07-02 16:42 ==
LOC: NCHCN 16:22
PROVIDERS: PCP Family Medicine; Visit Provider Family Medicine
DX: R10.9 Unspecified abdominal pain (principal); Z11.59 Encounter for screening for other viral diseases; E11.9 Type 2 diabetes mellitus without complications
CPT/HCPCS: 80053; 83690; 86803; 87340; 87389

== ENCOUNTER 2020-08-06 07:57 | Emergency (ER) | payer MEDICAID, SELFPAY ==
[2020-08-06] VITALS (15 sets, daily range): BP systolic 132–168; BP diastolic 74–99; PULSE 65–88; RESP 8–16; TEMP 36.9–37.1; O2SAT 98–100
--- NOTE | 2020-08-06 07:45 | RT.EKG_ITS ---
APPROVED REPORT Exam: Resting ECG Patient Location: E HR:83 bpm ECG Measurements Heart Rate 83 AXIS VT 130 P 73 QRSd 92 QRS 73 QT 352 T 28 QTc 413 Conclusion Sinus rhythm...normal P axis, V-rate 60- 99. Peaked T waves. No STEMI. No old EKG to compare. I have reviewed and interpreted ECG and agree with software generated interpretation.
--- NOTE | 2020-08-06 08:05 | W.ED.GENAD ---
Discharge Plan Disposition Patient Disposition: HOME Condition: Stable Discharge Details Clinical Impression: Left-sided chest wall pain, Pneumonia Primary Care Provider: Kaushal Schmidt ED Provider: Olga Hart Home Meds and New Rx's Prescriptions: New levofloxacin 750 mg tablet 750 mg PO DAILY 4 Days Qty: 4 RF: 0 Continued Lantus Solostar U-100 Insulin 100 UNIT/ML insulin pen 10 units Sub-Q HS RF: 0 glipizide 10 mg tablet 10 mg PO DAILY RF: 0 lisinopril 10 mg tablet 10 mg PO DAILY RF: 0 Discharge Instructions Instructions: Pneumonia (ED), Chest Wall Pain (ED) Additional Instructions: Drink plenty of fluids and get plenty of rest. Alternate tylenol and motrin as needed and directed for pain. You can also try [id number] topical Lidocaine patches as needed and directed for pain. Take the antibiotics until finished. You will receive a call from the hospital regarding your follow-up appointment for your outpatient stress test. Return immediately to the emergency department if you develop any worsening or new concerning symptoms. Discharge Data Discharge Date/Time-TO BE ENTERED AT DEPARTURE: 08/06/20 13:24 Discharge Physician: Olga Hart Medical Decision Making 0805 -- 45-year-old male with a history of diabetes, chronic marijuana smoker who presents for left-sided chest pain that started upon awakening at 3 AM. Some paresthesias into left arm but no other associated symptoms. Worse with movement of his arms. Patient also seems anxious and has extreme family stress in his life currently. EKG notes a rate of 83, sinus, peaked T waves in anterior leads, no STEMI. History and presentation seem most likely consistent with muscular. However considering patient's age and history, will obtain a cardiac work-up, EKG. Will give a dose of Toradol and reassess. 0925 --patient reassessed and he feels much better. States pain near resolved after Toradol. Labs and imaging reviewed. Magnesium 1.7, otherwise unremarkable. Troponin negative. Chest x-ray negative. Patient initially requesting to leave but is now agreeable to stay for 3-hour troponin. He stated now to be admitted. We had a long discussion about the significant stress in his life with his family currently. He states this is causing him increased anxiety, stress and he feels this is the cause of his pain. 1115 -- Pt has remained pain free until the nurse obtained the 2nd ekg and troponin and the pain returned. He states it is now better. He appears quite anxious and asks should I just lift a couple dumbells to bring on this heart attack to get it over with?. Will give a dose of ativan and reassess. Repeat EKG unchanged. Repeat troponin negative. 1200 -- Pt reassessed -- he is now complaining of pain in chest with deep breath. He initially denied this. He is asking to leave to get something to eat and then come back for the test another day. He is then agreeable to CT chest now. 1245 -- CT chest notes negative for PE but notes indeterminate radiopacities left lung base. As pt is smoker and has pleuritic pain with now reported cough earlier this week, will treat with antibiotics. An order for an outpatient stress test placed. Advised to follow up with the primary care doctor for re-evaluation. Usual and customary return precautions given prior to discharge. Medical Records Medical records reviewed: Yes I reviewed the patient's medical records. Imaging Data Radiologic Study: Radiologist's impression: XR CHEST 2V PA LATERAL CLINICAL HISTORY: L sided chest pain, r/o acute disease TECHNIQUE: COMPARISON: No exams were available for comparison FINDINGS: PA and lateral views of the chest were obtained. There is deformity of the right 4th rib which appears to be chronic. Heart is not enlarged. Lungs are clear. No pleural effusion. IMPRESSION: No evidence of acute process. CT CHEST PE CTA CLINICAL HISTORY: L sided pleuritic chest pain, r/o PE. TECHNIQUE: Imaging Protocol: Axial CT angiography was performed with multi-slice acquisition and multi-planar and/or 3D reconstructions. CONTRAST MATERIAL: Intravenous: Omnipaque 350 Contrast volume:structured data in ml COMPARISON: CT CT ABDOMEN PELVIS W from 03/22/2019 FINDINGS: CT angiography of the chest was performed with intravenous infusion of 100 cc of Omnipaque 350. The lungs are predominantly clear, however there are focal areas opacity at the left lung base posteriorly and medial which are pleural based and which were not present on prior CT of March 2019. This is a nonspecific finding, but the possibility of small areas of consolidation would have to be raised. Pulmonary nodule not excluded, follow-up chest CT recommended in 4-6 weeks period. No pleural effusion. Tracheobronchial tree appears intact. No evidence of pulmonary embolic disease. Thoracic aorta is of normal diameter, no thoracic aortic aneurysm or dissection, major branch vessels appear intact. No mediastinal or hilar adenopathy. Images obtained through the upper abdomen show unremarkable appearance of the visualized portions of the liver, spleen, pancreas, adrenals, and kidneys. IMPRESSION: No evidence of pulmonary embolic disease. Indeterminate radiopacities left lung base, possible infectious process. Follow-up chest CT recommended in 4-6 weeks to exclude neoplastic process. Lab Data Lab results reviewed: Yes I reviewed the patient's lab results. ECG Data Attestation: I personally reviewed and interpreted this ECG (s) as follows: Interpretation: Rate of 83, sinus, peaked T waves in V2 to V4. No acute ST elevation or depression. [place] 130. QRS 92. QTc 413. HPI General Mode of arrival: ambulatory. Date/Time Provider Initiated Documentation: 08/06/20 08:01. Limitations to Documentation: no limitations. Information obtained by: patient. HPI Narrative: Pt is a 45yo M w/ a h/o diabetes and chronic marijuana smoker who presents to the ED w/ a c/o localized area of L sided chest pain that he noted upon awakening from sleep at 3am this morning. Pt describes the pain as constant, sharp, currently 4/10, with 7/10 at its worst. He states the pain does not radiate but he does admit to tingling in his L arm. He states the pain is worse with movement and better with nothing. He has not taken any medicine for pain. He denies fever, cough, shortness of breath, nausea, vomiting, dizziness, leg pain or swelling, recent travel, recent injury, or recent known sick contacts. He states he knows he is going to of a heart attack eventually because a [employer] board told him this before. Related Data Home Medications Medication Instructions Recorded Confirmed Lantus Solostar U-100 Insulin 10 units SUB-Q HS 12/26/16 08/06/20 glipizide 10 mg PO DAILY 08/06/20 08/06/20 levofloxacin 750 mg PO DAILY 4 Days #4 tab 08/06/20 lisinopril 10 mg PO DAILY 08/06/20 08/06/20 Previous Rx's Medication Instructions Recorded levofloxacin 750 mg PO DAILY 4 Days #4 tab 08/06/20 Allergies Allergy/AdvReac Type Severity Reaction Status Date / Time No Known Allergies Allergy Verified 08/06/20 08:04 General Stated Complaint: Chest Pain MARYURI: 2 Review of Systems All systems reviewed & are unremarkable except as noted in HPI and below Constitutional Constitutional: Reports as per HPI, Denies chills and Denies fever(s) Eyes Eyes: Denies blurry vision ENT Ears, Nose, Mouth, and Throat: Denies dizziness, Denies sore throat and Denies throat swelling Cardiovascular Cardiovascular: Reports chest pain and Denies dyspnea Respiratory Respiratory: Denies cough and Denies dyspnea Gastrointestinal Gastrointestinal: Denies abdominal pain, Denies diarrhea and Denies vomiting Genitourinary Genitourinary: Denies hematuria and Denies dysuria Musculoskeletal Musculoskeletal: Denies back pain and Denies numbness Integumentary/Breasts Skin/Breast: Denies lesions and Denies rash Neurologic Neurologic: Denies dizziness, Denies localized weakness and Denies numbness Allergic/Immunologic Allergic/Immunologic: Denies throat swelling [facility] Medical History (Updated 08/06/20 @ 13:16 by Olga Hart DO) Diabetes Surgical History H/O elbow surgery History of dental surgery History of esophagogastroduodenoscopy (EGD) 12/13/[address] Maria Luz Gavin, [facility], repeat three years. mg Family History Mother Diabetes Social History Smoking/Tobacco Use Status: Never Smoking risk assessment performed?: Yes Alcohol Intake: never Drug use: Daily Substance use type: marijuana Do you feel safe at home: Yes Do you feel safe in your relationship?: Yes Exam Const General: cooperative and anxious Orientation: alert, awake and oriented x3 HENMT Head: normal to inspection Face and sinus: normal facial exam Eyes General: appearance normal, both eyes and all related structures EOM: EOM intact bilaterally Neck Neck: normal visual inspection and No submandibular swelling Lymphatic: no lymphadenopathy noted Chest Chest: normal inspection of the chest and no tenderness Resp Effort & Inspection: normal respiratory effort and able to speak in complete sentences Auscultation: clear to auscultation bilaterally Cardio Rate: regular rate Rhythm: regular rhythm GI Inspection: normal to inspection Palpation: soft, not firm, not rigid and nontender Auscultation: normal bowel sounds Skin General skin exam: no rashes or lesions noted Neuro General: patient alert, patient awake and patient oriented x3 Cognition: normal cognition Speech: speech normal Motor: muscle tone normal throughout Sensory Exam: no sensory deficits noted Extrem General: normal to inspection, full ROM, capillary refill normal, no calf tenderness bilaterally and no edema Psych Appearance: grossly normal Mental Status: mental status grossly normal Speech and Movement: speech and movement normal Affect: anxious affect Course Vital Signs Vital signs: Vital Signs Temperature 98.8 F 08/06/20 07:59 Pulse 83 08/06/20 07:59 Respiratory Rate 16 08/06/20 07:59 Blood Pressure 150/99 H 08/06/20 07:59 Pulse Oximetry 100 08/06/20 07:59 Temperature 98.8 F 08/06/20 07:59 Temperature Source Skin 08/06/20 07:59 Pulse 83 08/06/20 07:59 Respiratory Rate 16 08/06/20 07:59 Respiratory Effort Non-Labored 08/06/20 08:03 Blood Pressure 150/99 H 08/06/20 07:59 Blood Pressure Position Supine 08/06/20 07:59 Pulse Oximetry 100 08/06/20 07:59 Oxygen Delivery Method Room Air 08/06/20 07:59 Oxygen Flow Rate 0 08/06/20 07:59 Pain Level 5 08/06/20 07:59
[2020-08-06 08:18] LABS: Abs Immature Grans 0.03 10^3/uL (0.0-0.06); Absolute Basophil Count 0.07 10^3/uL (0.0-0.2); Absolute Lymphocyte Count 3.04 10^3/uL (1.2-3.4); Absolute Monocyte Count 0.56 10^3/uL (0.1-0.8); Absolute Neutrophil Count 4.37 10^3/uL (1.2-6.7); Basophils % 0.8; Eosinophils % 2.4; HCT 43.9 % (40.0-50.0); Immature Grans % 0.4; Lymphocytes % 36.8; MCH 29.4 pg (27.0-33.0); MCHC 34.2 % (32.0-36.0); MCV 85.9 fL (80-95); MPV 9.4 fL (8.0-11.0); Monocytes % 6.8; Neutrophils % 52.8; Nucleated RBC 0 %; Platelet Count 300 10^3/uL (130-400); RBC 5.11 10^6/uL (4.36-5.78); RDW 12.1 % (11.8-14.1); RDW-SD 38.4 fL; WBC 8.27 10^3/uL (4.4-10.8)
--- NOTE | 2020-08-06 08:30 | DI.RAD_ITS ---
EXAM: XR CHEST 2V PA LATERAL CLINICAL HISTORY: L sided chest pain, r/o acute disease TECHNIQUE: COMPARISON: No exams were available for comparison FINDINGS: PA and lateral views of the chest were obtained. There is deformity of the right 4th rib which appea rs to be chronic. Heart is not enlarged. Lungs are clear. No pleural effusion. IMPRESSION: No evidence of acute process. RADIATION DOSE DELIVERED: Total DLP Total DLP
[2020-08-06 08:31] LABS: PTT Activated 24.3 sec (21.0-27.5); Prothrombin Time 9.9 sec (9.3-11.0)
[2020-08-06 08:35] LABS: ALT 56 U/L (16-63); AST 29 U/L (15-37); Albumin 3.9 g/dL (3.4-5.0); Alkaline Phosphatase 95 U/L (46-116); Anion Gap 3.4 mmol/L (3-11); BUN 18 mg/dL (7-18); Bilirubin, Total 0.5 mg/dL (0.2-1.0); CO2 29.6 mmol/L (21.0-32.0); CREATININE 1.33 mg/dL (0.70-1.30); Chloride 103 mmol/L (98-107); Estimated GFR 58.14 (mL/min/1.73m2); Glucose 204 mg/dL (74-106); Magnesium 1.7 mg/dL (1.8-2.4); Potassium 4.4 mmol/L (3.5-5.1); Sodium 136 mmol/L (136-145); Total Protein 7.1 g/dL (6.4-8.2)
[2020-08-06 08:36] LABS: Troponin I < 0.05 ng/mL (<0.06)
[2020-08-06] MEDS: Ketorolac 30 MG/ML VIAL IVP (08:45)
--- NOTE | 2020-08-06 08:45 | NUR.NOTE ---
Nursing Note: pt provided phone to call girlfriend.
[2020-08-06] MEDS: MAGNESIUM SULFATE 1 GM/100 ML BAG IVPB (09:30)
--- NOTE | 2020-08-06 09:30 | RT.EKG_ITS ---
APPROVED REPORT Exam: Resting ECG Patient Location: E HR:67 bpm ECG Measurements Heart Rate 67 AXIS AK 141 P 65 QRSd 93 QRS 76 QT 366 T 37 QTc 387 Conclusion Sinus rhythm...normal P axis, V-rate 60- 99 Consider left ventricular hypertrophy...(S V1+R V5/V6) >3.50mV. No STEMI. I have reviewed and interpreted ECG and agree with software generated interpretation.
[2020-08-06] MEDS: LORazepam 2 MG/ML VIAL 0.5 MG IVP (11:34)
[2020-08-06 11:41] LABS: Troponin I < 0.05 ng/mL (<0.06)
--- NOTE | 2020-08-06 12:16 | DI.CT_ITS ---
EXAM: CT CHEST PE CTA CLINICAL HISTORY: L sided pleuritic chest pain, r/o PE. TECHNIQUE: Imaging Protocol: Axial CT angiography was performed with multi-slice acquisition and mu lti-planar and/or 3D reconstructions. CONTRAST MATERIAL: Intravenous: Omnipaque 350 Contrast volume:structured data in ml COMPARISON: CT CT ABDOMEN PELVIS W from 03/22/2019 FINDINGS: CT angiography of the chest was performed with intravenous infusion of 100 cc of Omnipaque 350. The lungs are predominantly clear, however there are focal areas opacity at the left lung base date pitter iorly and medial which are pleural based and which were not present on prior CT of March 2019. This i s a nonspecific finding, but the possibility of small areas of consolidation would have to be raised. Pulmonary nodule not excluded, follow-up chest CT recommended in 4-6 weeks period. No pleural effu cresencio. Tracheobronchial tree appears intact. No evidence of pulmonary embolic disease. Thoracic aorta is of normal diameter, no thoracic aortic an eurysm or dissection, major branch vessels appear intact. No mediastinal or hilar adenopathy. Images obtained through the upper abdomen show unremarkable appearance of the visualized portions of the liver, spleen, pancreas, adrenals, and kidneys. IMPRESSION: No evidence of pulmonary embolic disease. Indeterminate radiopacities left lung base, possible infectious process. Follow-up chest CT recommen ded in 4-6 weeks to exclude neoplastic process. RADIATION DOSE DELIVERED: 246.6mGy.cm Total DLP 246.6mGy.cm Total DLP DATA REPOSITORY: All CT scans at this facility are submitted to the National Radiology Data Registry (NRDR) Dose Index Registry (DIR) with the [employer] (ACR). RADIATION OPTIMIZATION: All CT scans at this facility use at least one of these dose optimization te chniques: automated exposure control; mA and/or kV adjustment per patient size (includes targeted exa ms where dose is matched to clinical indication); or iterative reconstruction.
[2020-08-06] MEDS: Omnipaque 350 MG/ML 100 ML BTL IJ (12:23)
[2020-08-06] MEDS: levoFLOXacin 500 MG, levoFLOXacin 250 MG 750 MG PO (13:24)
== END 2020-08-06 13:24 | disposition home or self-care (01) ==
PROVIDERS: Emergency Provider Physician Assistant; PCP Family Medicine
DX: J18.8 Other pneumonia, unspecified organism (principal); R07.81 Pleurodynia; R20.2 Paresthesia of skin; E11.9 Type 2 diabetes mellitus without complications; Z79.4 Long term (current) use of insulin; E83.42 Hypomagnesemia
CPT/HCPCS: 36415; 36416; 71275; 80053; 82962; 93005; 96365; 96375; 99285; 71046; 83735; 84484; 85025; 85610; 85730; 93010; J1885; J2060; J3475; J3490

== ENCOUNTER 2021-12-21 10:25 | Emergency (ER) | payer MEDICAID, SELFPAY ==
--- NOTE | 2021-12-21 10:30 | ED.GENADUL_ITS ---
Discharge Plan Disposition Patient Disposition: HOME Condition: Stable Discharge Details Clinical Impression: Hyperglycemia Primary Care Provider: Kaushal Schmidt ED Provider: Samuel Reddy Home Meds and New Rx's Prescriptions: Continued Lantus Solostar U-100 Insulin 100 UNIT/ML insulin pen 10 units Sub-Q HS 0RF glipizide 10 mg tablet 10 mg PO DAILY 0RF Label Comments: TK 1 T PO D FOR BS lisinopril 10 mg tablet 10 mg PO DAILY 0RF Label Comments: TAKE 1 TABLET BY MOUTH ONCE DAILY FOR KIDNEY PROTECTION No Action Lantus Solostar U-100 Insulin 100 unit/mL (3 mL) insulin pen 20 unit SUBCUT .QHS 0RF Label Comments: ADMINISTER 22 UNITS UNDER THE SKIN EVERY NIGHT Discharge Instructions Instructions: Diabetic Hyperglycemia (ED) Additional Instructions: You ran out of your Lantus 2 nights ago, glucose now is 269, a single dose 20 units of Lantus Solostar pen given now. We discussed obtaining additional blood work which you have declined as you tell me you will see your primary care provider tomorrow and can refill your medications then. Please watch for new or worsening symptoms and return to the ER for any concerns Medical Decision Making 46-year-old gentleman, history of diabetes, ran out of his Lantus 2 nights ago, requesting a dose now. He states that he will wait until tomorrow but he is going to have a large Easter meal. He reports this morning he had mild nausea with one small piece of vomiting. Reports when his glucose levels are elevated he gets some tingling in his legs which he experienced earlier but denies any now. Clinically he appears well, nontoxic, blood pressure 183/90 otherwise vital signs are unremarkable. Denies any headache or chest pain. Patient with a finger glucose stick of 269. We discussed obtaining IV access and laboratory values for further evaluation of the symptoms but clinically extremely low suspicion of DKA. Patient reports that he feels otherwise fine, simply wants a dose of his medication, would like to be discharged. He plans to follow-up with his primary care provider tomorrow to discuss his medications. He states that h e began running, feels like he is in better shape, and wonders if he needs to take all the medication in the first place. He plans to get a refill from the pharmacy tomorrow of his current medications but he happens not to have refills he will bring this up to his primary care provider. A single dose of Lantus 20 units given subcu. Patient does understand the risks of not obtaining laboratory values but given his overall presentation I believe this to be reasonable. Standard discharge and return precautions were provided. This documentation was generated using [employer] dictation system, please disregard any oddities of phrase or misspellings. Medical Records Medical records reviewed: Yes I reviewed the patient's medical records. HPI General Mode of arrival: ambulatory . Date/Time Provider Initiated Documentation: 12/21/21 10:26 . Limitations to Documentation: no limitations . Information obtained by: patient . HPI Narrative: This is a 46-year-old gentleman, past medical history of diabetes, pancreatitis, anxiety, presenting to the ER reporting that he has not had his Lantus dose in 2 days, requesting a dose and concern for hyperglycemia. He states he would guess his levels are in the 400s but he has not checked this at home. He believes he needs a dose now because he is going to have a large Easter meal. Patient states that he did feel little nauseous earlier and did vomit x1. He also reports that when his glucose levels get elevated he gets a little tingling in his legs which is very common. Patient denies recent illness or trauma. He states that he is planning to see his primary care provider tomorrow and believes that he has a refill at the pharmacy awaiting his Lantus. If not, he plans to discuss his medication regimen with his primary care provider. He denies any fever, chest pain, abdominal pain, diarrhea, skin rash, shortness of breath or cough. No additional concerns or complaints at this time. He has not run out of his other medications Related Data Home Medications Medication Instructions Recorded Confirmed insulin glargine 100 unit/mL (3 10 units SUB-Q HS 12/26/16 12/21/21 mL) subcutaneous pen (Lantus Solostar U-100 Insulin) glipizide 10 mg tablet 10 mg PO DAILY 08/06/20 12/21/21 lisinopril 10 mg tablet 10 mg PO DAILY 08/06/20 12/21/21 insulin glargine 100 unit/mL (3 20 unit SUBCUT .QHS 12/21/21 12/21/21 mL) subcutaneous pen (Lantus Solostar U-100 Insulin) Allergies Allergy/AdvReac Type Severity Reaction Status Date / Time No Known Allergies Allergy Verified 12/21/21 10:35 General MARYURI: 2 Review of Systems Constitutional Constitutional: Denies fever(s) and Denies weakness Cardiovascular Cardiovascular: Denies chest pain and Denies dyspnea Respiratory Respiratory: Denies dyspnea Gastrointestinal Gastrointestinal: Denies abdominal pain, Reports nausea and Reports vomiting Musculoskeletal Musculoskeletal: Denies numbness Integumentary/Breasts Skin/Breast: Denies rash Neurologic Neurologic: Denies numbness and Denies weakness PFSH All Active Problems Hyperglycemia (Acute) High blood pressure (Chronic) Epigastric pain (Acute) Anxiety (Chronic) DVT prophylaxis (Acute) Pancreatitis (Chronic) History of dental surgery (Acute) Diabetes (Chronic) Surgical History H/O elbow surgery History of esophagogastroduodenoscopy (EGD) 12/13/[address] Maria Luz Gavin, [facility], repeat three years. mg Family History Mother Diabetes Social History Smoking/Tobacco Use Status: Never Smoking risk assessment performed?: Yes Alcohol Intake: never Drug use: Daily Substance use type: marijuana Do you feel safe at home: Yes Do you feel safe in your relationship?: Yes Exam Const General: cooperative, healthy appearing, comfortable and no acute distress Orientation: alert, awake and oriented x3 [facility] Head: normal to inspection, normocephalic and atraumatic Eyes General: appearance normal, both eyes and all related structures Conjunctivae: conjunctivae normal Neck Neck: normal visual inspection, full ROM, trachea midline and supple Resp Effort & Inspection: normal respiratory effort and able to speak in complete sentences Auscultation: clear to auscultation bilaterally Cardio Rate: regular rate Rhythm: regular rhythm GI Palpation: soft, not firm, no guarding, no pulsatile masses and nontender Back/Spine/Pelvis Back: No back tenderness Skin General skin exam: no rashes or lesions noted Neuro General: patient alert, patient awake, patient oriented x3, moves all extremities and no focal motor deficits Cognition: normal cognition Speech: speech normal Gait: normal gait Motor: muscle tone normal throughout Sensory Exam: no sensory deficits noted Extrem General: normal to inspection and full ROM Psych Appearance: grossly normal Mental Status: mental status grossly normal
[2021-12-21 10:31] VITALS: BP 183/90; PULSE 85; RESP 16; TEMP 36.6; O2SAT 100
[2021-12-21] MEDS: Insulin Glargine 300 UNITS/3 ML PEN 20 UNITS SC (11:00)
== END 2021-12-21 11:02 | disposition home or self-care (01) ==
PROVIDERS: Emergency Provider Physician Assistant; PCP Family Medicine
DX: E11.65 Type 2 diabetes mellitus with hyperglycemia (principal)
CPT/HCPCS: 36416; 82962; 96372; 99284; 99283; J1815

== ENCOUNTER 2022-03-25 13:10 | Outpatient (REF) | payer MEDICAID, SELFPAY ==
[2022-03-25 15:26] LABS: HGB 14.3 g/dL (13.5-17.5); MCH 29.1 pg (27.0-33.0); MCHC 34.9 % (32.0-36.0); MCV 83 fL (80-95); MPV 10.2 fL (8.0-11.0); Platelet Count 314 10^3/uL (130-400); RBC 4.92 10^6/uL (4.36-5.78); RDW 11.8 % (11.8-14.1); RDW-SD 35.5 fL; WBC 8.67 10^3/uL (4.4-10.8)
[2022-03-25 16:29] LABS: ALT 50 U/L (16-63); AST 29 U/L (15-37); Albumin 4.2 g/dL (3.4-5.0); Alkaline Phosphatase 94 U/L (46-116); Anion Gap 9.2 mmol/L (3-11); BUN 21 mg/dL (7-18); Bilirubin, Total 0.3 mg/dL (0.2-1.0); CO2 28.8 mmol/L (21.0-32.0); CREATININE 1.2 mg/dL (0.70-1.30); Calcium 9.8 mg/dL (8.5-10.1); Chloride 101 mmol/L (98-107); Glucose 185 mg/dL (74-106); Magnesium 1.8 mg/dL (1.8-2.4); Potassium 4.8 mmol/L (3.5-5.1); Sodium 139 mmol/L (136-145); TSH (W/Ref FT4) 2.33 uIU/mL (0.36-3.74); Total Protein 7.2 g/dL (6.4-8.2)
[2022-03-26 10:06] LABS: HIV-1/2 Ag & Ab Screen Negative (Negative)
== END 2022-03-25 13:11 | disposition home or self-care (01) ==
LOC: NCHCN 13:10
PROVIDERS: PCP Family Medicine; Visit Provider Family Medicine
DX: E61.2 Magnesium deficiency; E11.9 Type 2 diabetes mellitus without complications; R53.83 Other fatigue; Z11.4 Encounter for screening for human immunodeficiency virus [HIV]
CPT/HCPCS: 80053; 85027; 87389; 83735; 84443

== ENCOUNTER 2022-09-15 11:59 | Outpatient (CLI) | payer MEDICAID, SELFPAY ==
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
== END 2022-09-15 12:19 ==
LOC: DI 12:01
PROVIDERS: PCP Family Medicine; Visit Provider Family Medicine
DX: M47.814 Spondylosis without myelopathy or radiculopathy, thoracic region (principal)
CPT/HCPCS: 72110

== ENCOUNTER 2023-08-06 08:44 | Outpatient (CLI) | payer MEDICAID, SELFPAY ==
--- NOTE | 2023-08-06 08:30 | DI.RAD_ITS ---
Exam(s) XR HAND RT COMPLETE EXAM: XR HAND RT COMPLETE CLINICAL HISTORY: MASS OF RIGHT HAND. TECHNIQUE: 2D digital imaging was performed of the right hand. Four images were obtained. AP, later al and oblique views were obtained. COMPARISON: No exams were available for comparison FINDINGS: BONES: No acute fracture is present. No bony destructive lesion is seen. JOINTS: No dislocation present. The joint spaces are well maintained. SOFT TISSUE: There is soft tissue swelling along the medial aspect of the hand adjacent to the 5th me tacarpal bone. No bony abnormality is identified. No soft tissue calcifications are present. IMPRESSION: Soft tissue swelling adjacent to the 5th metacarpal bone without evidence of underlying bony abnormal ity or soft tissue calcifications. If there is continued clinical concern, sonographic or MRI correla tion may be obtained. DATA REPOSITORY: RADIATION DOSE DELIVERED:
== END 2023-08-06 08:45 | disposition home or self-care (01) ==
LOC: DIORS 08:44
PROVIDERS: PCP Family Medicine; Referring Provider Family Medicine; Visit Provider Student in an Organized Health Care Education/Training Program
DX: R22.31 Localized swelling, mass and lump, right upper limb (principal)
CPT/HCPCS: 73130

== ENCOUNTER 2023-08-11 12:39 | Day surgery (SDC) | payer MEDICAID, SELFPAY ==
[2023-08-11 13:27] VITALS: BP 117/83; PULSE 70; RESP 18; TEMP 36.4; O2SAT 99
[2023-08-11] MEDS: Lactated Ringers 1,000 ML 80 ML IV (13:42)
--- NOTE | 2023-08-11 13:47 | W.ANESPRE ---
General Info Date of Service Date Performed: 08/11/23 Height: 5 ft 3 in Weight: 57.6 kg Body Mass Index (BMI): 22.4 Surgical Procedure: Operation Date: 08/11/23 15:10 Proposed Procedure Side Surgeon p Excision of Mass, Hand Right Td Fofana MD Meds Allergies and Home Medications Allergies Allergy/AdvReac Type Severity Reaction Status Date / Time No Known Allergies Allergy Verified 08/11/23 13:25 Home Medication Medication Instructions Recorded glipizide 10 mg tablet 10 mg PO DAILY 08/06/20 insulin glargine 100 unit/mL (3 22 unit (0.22 mL) subcut .QHS #15 12/22/21 mL) subcutaneous pen (Lantus mL Solostar U-100 Insulin) lisinopril 20 mg tablet 20 mg PO DAILY 01/14/23 cephalexin 500 mg tablet 500 mg PO TID 7 days #21 tabs 08/06/23 Current Visit Medications: Current Medications Generic Name Dose Route Start Last Admin Trade Name Freq PRN Reason Stop Dose Admin Acetaminophen 650 mg 08/11/23 12:04 Acetaminophen 325 Mg Tab PO 09/10/23 12:03 Q4H PRN PRN Hydrocodone Bitart/Acetaminophen 0 tab 08/11/23 12:15 Hydrocodone 5/Acetaminophen 325 Tab PO 09/10/23 12:14 Q3H PRN PRN Pain Ringer's Solution 1,000 mls @ 80 mls/hr 08/11/23 06:00 08/11/23 13:42 IV 09/09/23 23:59 80 mls/hr INFUSION HOME Administration Cefazolin Sodium/Dextrose 2 gm in 50 mls @ 100 mls/hr 08/11/23 06:00 Ancef Duplex IVPB 08/11/23 16:00 PREOP HOME IV Miscellaneous Supplies 1 each 08/11/23 06:00 Iv Access IV 09/09/23 23:59 DIRECTED HOME Sodium Chloride 0 ml 08/11/23 06:00 Normal Saline Flush 10 Ml Syr IV 09/09/23 23:59 PRN PRN Sodium Chloride 0 ml 08/11/23 06:00 Normal Saline 10 Ml Vial IJ 09/09/23 23:59 DIRECTED PRN Sterile Water 0 ml 08/11/23 06:00 Water,Injection,Sterile 10 Ml Vial IJ 09/09/23 23:59 DIRECTED PRN PFS Active Problems Active Problems: Problem Status Onset Code Epidermoid cyst of hand L72.0 Foreign body of hand, right, infected S60.551A, L08.9 Mass of right hand R22.31 Back pain M54.9 High blood pressure I10 Epigastric pain R10.13 Anxiety F41.9 DVT prophylaxis Pancreatitis K85.90 History of dental surgery Z92.89 Diabetes E11.9 Medical History Medical History Chronic recurrent pancreatitis Weight loss, abnormal Nephropathy Abdominal pain Fatigue Magnesium deficiency History of substance abuse Surgical History Surgical History History of esophagogastroduodenoscopy (EGD) 12/13/[address] Maria Luz Gavin, [facility], repeat three years. mg H/O elbow surgery Tobacco Smoking/Tobacco Use Status: Never Alcohol Alcohol Intake: never Substance Use Substance use: Daily Substance use type: marijuana Details: Today was last dose Vital Signs and Lab Results Vital Signs Most Recent Vital Signs in EMR: Most Recent Vital Signs Temp Pulse Resp BP Pulse Ox 36.4 C L 70 18 117/83 99 08/11/23 13:27 08/11/23 13:27 08/11/23 13:27 08/11/23 13:27 08/11/23 13:27 Point of Care Results Point of Care Results: Finger Stick Blood Glucose 88 08/11/23 13:14 Lab Results Blood Type / Crossmatch: No Data to Display Complete Blood Count: No Data to Display Complete Metabolic Panel: No Data to Display Liver Function Panel: No Data to Display Coagulation Panel: No Data to Display Cardiac Panel: No Data to Display Arterial Blood Gas: No Data to Display Venous Blood Gas: No Data to Display Pancreas Panel: No Data to Display Thyroid Panel: No Data to Display Infectious Disease: No Data to Display Blood Cultures: No Data to Display Toxicology Panel: No Data to Display Imaging and Studies Imaging and Studies Study information below may be from another EMR and interpreted by another provider. Please see original notes in EMR for more complete details. EKG Summary: 08/25: sinus Anesthesia Assessment and Plan Anesthesia History Personal History: No History of Anesthesia Complications Family History: No Family History of Anesthesia Complications Exercise Tolerance Exercise Tolerance: Metabolic Equivalents>4 Cardiac & Pulmonary Exam Cardiac Exam: Normal S1/S2 Heart Sounds Pulmonary Exam: Clear Bilateral Breath Sounds Implantable Cardiac Device Does patient have a Pacemaker or an ICD?: No Airway Exam Known Difficult Airway: No Mallampati Class: 3 Mouth Opening: Narrow (< 3cm) Thyromental Distance: Greater than 3 cm Neck Range of Motion: Full ROM Neck Circumference: Normal Teeth Condition: Normal Dentition ASA Classification ASA Score: ASA 2 Emergency Case?: No NPO Status NPO Status: NPO Clears >2 hours, Solids >8 hours Anesthesia Plan Resuscitation Status: Full Code Anesthesia Technique: General Anesthesia Airway Planned: Natural Airway Pain Management: Surgeon and patient request nerve block (resuce) Monitors Used: Standard Monitors Preoperative Comments:: 48 yo male for mass excision, hand. Sig PMHx: HTN (lisinopril), anxiety, DM (glipizide, lantus), chronic recurrent pancreatitis, never smoker, Previous Anes: - EGD, prop, natural airway, no issues.
[2023-08-11 13:51] VITALS: BMI 22.4
--- NOTE | 2023-08-11 14:04 | HPE_ITS ---
Assessment and Plan Assessment and plan (1) Epidermoid cyst of hand: Status: Acute Assessment and plan: Aldo is a 48-year-old who has a mass about the right hand which appears to be an epidermoid cyst. Proximal this he also has some retained would likely. Given the proximity location I did offer an excision of both masses. This will be done from single approach. I reviewed this with him. I discussed the risks include bleeding, infection, pain, stiffness, recurrence, need for repeat procedures, damage nerves and vessels. Despite these risk, he elects to proceed. (2) Foreign body of hand, right, infected: Status: Acute History of Present Illness Narrative: Aldo is a 48-year-old who has pain and swelling by his right hand. He has had a growing lump about the base of the fifth MCP joint. He also had a piece of partially wood which has been embedded in his right hand which he thinks are still some remnant pieces. Due to his pain and swelling I recommended excision. He is here today for this. I discussed with the office last week. He had no changes to his health. He denies chest pain or shortness of breath. He has had some drainage from the site of the splinter proximal to the mass. No other acute changes. Review of Systems All systems reviewed & are unremarkable except as noted in HPI and below PFSH All Active Problems Epidermoid cyst of hand (Acute) Foreign body of hand, right, infected (Acute) Mass of right hand (Acute) Back pain (Acute) High blood pressure (Chronic) Epigastric pain (Acute) Anxiety (Chronic) DVT prophylaxis (Acute) Pancreatitis (Chronic) History of dental surgery (Acute) Diabetes (Chronic) Medical History Chronic recurrent pancreatitis Weight loss, abnormal Nephropathy Abdominal pain Fatigue Magnesium deficiency History of substance abuse Surgical History History of esophagogastroduodenoscopy (EGD) 12/13/[address] Maria Luz Gavin, [facility], repeat three years. mg H/O elbow surgery Family History Mother Diabetes Social History Smoking/Tobacco Use Status: Never Smoking risk assessment performed?: Yes Alcohol Intake: never Drug use: Daily Substance use type: marijuana Details: Today was last dose Housing: house Do you feel safe at home: Yes Do you feel safe in your relationship?: Yes Meds Allergies and Home Medications Allergies Allergy/AdvReac Type Severity Reaction Status Date / Time No Known Allergies Allergy Verified 08/11/23 13:25 Home Medications Medication Instructions Recorded Confirmed Type glipizide 10 mg tablet 10 mg PO DAILY 08/06/20 08/11/23 History insulin glargine 100 unit/mL (3 22 unit (0.22 mL) subcut .QHS #15 12/22/21 08/11/23 Rx mL) subcutaneous pen (Lantus mL Solostar U-100 Insulin) lisinopril 20 mg tablet 20 mg PO DAILY 01/14/23 08/11/23 History cephalexin 500 mg tablet 500 mg PO TID 7 days #21 tabs 08/06/23 08/11/23 Rx Exam Resp Effort & Inspection: normal respiratory effort Auscultation: clear to auscultation bilaterally Cardio Rate: regular rate Rhythm: regular rhythm Results Last Vital Signs Temp 36.4 C L 08/11/23 13:27 Pulse 70 08/11/23 13:27 Resp 18 08/11/23 13:27 BP 117/83 08/11/23 13:27 Pulse Ox 99 08/11/23 13:27
--- NOTE | 2023-08-11 14:22 | PDOC.DSDIS_ITS ---
Date of service: 08/11/23 Time of Service: 14:23 Discharge Plan Disposition Patient Disposition: Home Condition: Good Discharge Details Reason For Visit: Excision cyst/FB R hand Attending Provider: Td Fofana Primary Care Provider: Kaushal Schmidt Home Meds and New Rx's Prescriptions: New hydrocodone-acetaminophen 5-325 mg tablet 1 tab PO Q6H PRN (Reason: pain) Qty: 6 0RF acetaminophen 500 mg tablet 1,000 mg PO TID Qty: 90 0RF ibuprofen 600 mg tablet 600 mg PO TID PRN (Reason: pain) Qty: 90 0RF Continued Lantus Solostar U-100 Insulin 100 unit/mL (3 mL) insulin pen 22 unit SUBCUT .QHS Qty: 15 3RF lisinopril 20 mg tablet 20 mg PO DAILY glipizide 10 mg tablet 10 mg PO DAILY Patient Comments: TK 1 T PO D FOR BS cephalexin 500 mg tablet 500 mg PO TID 7 Days Qty: 21 0RF Discharge Instructions Additional Instructions: Dupuytren's Contracture Discharge Instructions Activity: You may use your fingers for light activity. You should limit any excessive motion or forceful gripping until the sutures have been removed. Dressings: You should keep the initial surgical dressing in place for 2 days or until your follow-up. You may remove your dressings and get the wound wet after 2 days. You should keep the dressings and the wound clean at all times. You may keep the wound covered with light gauze or Band-Aid until the sutures are removed. Medications: - You should take Tylenol and Ibuprofen around the clock as prescribed or per chief controller tower's recommendations. - You have Hydrocodone prescribed for breakthrough pain control. Take only as needed and limit use as much as possible. This may cause constipation. Follow-up: 7-10 days for wound check and suture removal. Stand Alone Forms: Anesthesia Discharge InstJohann, Alexia Anthony ([facility]) Referrals: Td Fofana MD [ [facility] STAFF PHYSICIAN] - 08/20/23 9:15 am Activity:: Activity as Tolerated Remove Dressings/Wound Care:: 48 hours Shower/Bathe:: 48 hours Diet:: As Tolerated Discharge Orders Discharge Orders: Discharge Order (Routine); Ordered 08/11/23 Ordered By: Wesley Mello DS: Diagnosis Discharge Diagnosis (1) Epidermoid cyst of hand: Status: Acute (2) Foreign body of hand, right, infected: Status: Acute
[2023-08-11] MEDS: ceFAZolin 2 GM/50 ML BAG IVPB (14:35)
[2023-08-11] MEDS: Sodium Bicarbonate 50 MEQ/50 ML VIAL (14:36)
[2023-08-11] MEDS: Lidocaine 1% Multi-Dose W/EPI 1/100,000 50 ML VIAL (14:36)
[2023-08-11 15:18] VITALS: BP 113/67; PULSE 71; RESP 16; TEMP 36.4; O2SAT 98
[2023-08-11 15:55] VITALS: BP 126/83; PULSE 88; RESP 16; TEMP 36.4; O2SAT 98
--- NOTE | 2023-08-11 17:11 | W.ANESPOSTOP ---
Postoperative Evaluation Date, Time and Location Date Performed: 08/11/23 Time Performed: 15:00 Patient Location: Day Surgery Unit (time of discharge not exact. ) Vital Signs Most Recent Imported Vital Signs: Most Recent Vital Signs Temp Pulse Resp BP Pulse Ox 36.4 C L 88 16 126/83 98 08/11/23 15:55 08/11/23 15:55 08/11/23 15:55 08/11/23 15:55 08/11/23 15:55 Pain Score Most Recent Pain Score: Most Recent Pain Score Pain Level 0 08/11/23 15:55 Assessment Mental Status: Awake (Alert & Oriented to Patient Baseline) Airway and Respiratory Function: Patent airway with normal (patient baseline) respiratory exam Cardiovascular Function: Hemodynamically Stable Hydration Status: Adequately Hydrated Nausea & Vomiting: No Nausea or Vomiting Pain: Pt. Denies Any Pain Peripheral Nerve Block: Patient did not receive a nerve block
--- NOTE | 2023-08-11 21:51 | W.PM.OP ---
Date of service: 08/11/23 Time of Service: 14:30 Operative Note Operative Note DATE OF PROCEDURE: 08/11/23 PRE-OP DIAGNOSIS: Epidermoid Cyst - Right Hand, Right Hand Foreign Body PROCEDURE: Excision of epidermoid cyst from the right hand, approximate 2 cm I&D of right hand wound with exploration for foreign body SURGEON: Td Fofana ANESTHESIA TYPE: General:No Airway Refer to Anesthesia Record ESTIMATED BLOOD LOSS: 10 PATHOLOGY: none sent TOURNIQUET TIME: 0 COMPLICATIONS: None Patient was transported to: same day Patient's condition: stable Indications: Shoaib is a 48-year-old who has had a enlarging mass about the right hand. It appeared to be an epidermoid cyst based on his characteristics. Given its size and impact on function I offered excision. Additionally at his presentation for this he also recently had a splinter of pressure-treated wood embedded in his hand. He thought that he got most of it out but had an active wound with some drainage and continued pain. I offered I&D and exploration for potential foreign body removal as well. I reviewed the risk of each of these procedures to include bleeding, infection, pain, stiffness, need for repeat procedures, recurrence, damage to nerves and vessels. Despite these risk, he elects to proceed. Findings: There is purulent material found within the right hand at the level of the entry point. There is debris but no full piece of wood. This was thoroughly irrigated and debrided. The mass about the ulnar aspect the right hand was an epidermoid cyst. It was quite large. His contents were evacuated and the cyst capsule was removed. Procedure Description: Shoaib was greeted in the preoperative holding area. His identity was confirmed the correct site was identified and marked. The consent was reviewed the patient and signed. He is taken back to the operating room placed in the supine position with the right hand the hand table. The right hand was prepped with ChloraPrep draped in standard fashion. Prophylactic antibiotics in the form of cefazolin were given. A timeout was performed for sick surgery. The defect of the right hand from the previous splinter was open by approximately half of a centimeter. There was gross purulence in this area. This was expressed. It was thoroughly irrigated. I then performed debridement. There is notable amount of debris and some necrotic material. However, there is no foreign material identified. Using a sterile ultrasound probe I also investigated the hand did not find significant wood material. At this point after thorough debris, investigation and search and irrigation, I closed the extension of the wound leaving a small portion open. Attention was turned to the mass about the ulnar aspect of the right hand. A 2 cm incision was made over the ulnar border of the right hand. Once to the skin the mass was easily identifiable and the capsule was pierced. A creamy white substance was evacuated consistent with keratin and epidermoid cyst. With the cyst evacuated the capsules these identifiable and it was dissected from the surrounding tissues and removed in whole. There were no other concerning features. The wound was irrigated. The skin was closed with a 3-0 nylon. At the end the case all counts were correct. The wounds were dressed with Xeroform, 4 x 4's, Kerlix and Lamont wrap.
== END 2023-08-11 16:10 | disposition home or self-care (01) ==
PROVIDERS: PCP Family Medicine; Visit Provider Student in an Organized Health Care Education/Training Program
PROC: (CPT 20103; principal; 2023-08-11 15:00)
DX: L72.0 Epidermal cyst (principal); Z18.33 Retained wood fragments; E11.9 Type 2 diabetes mellitus without complications; Z79.4 Long term (current) use of insulin
CPT/HCPCS: 20103; 11422; J0690; J1100; J2250; J2405; J3010

== ENCOUNTER 2023-12-17 15:07 | Outpatient (REF) | payer SELFPAY ==
[2023-12-17 15:06] LABS: BUN 18 mg/dL (7-18); CREATININE 1.3 mg/dL (0.70-1.30); Calcium 9.7 mg/dL (8.5-10.1); Chloride 105 mmol/L (98-107); Estimated GFR 67.76 (mL/min/1.73m2); Glucose 244 mg/dL (74-106); Potassium 4.6 mmol/L (3.5-5.1); Sodium 140 mmol/L (136-145)
== END 2023-12-17 15:08 | disposition home or self-care (01) ==
LOC: NCHCN 15:07
PROVIDERS: PCP Family Medicine; Visit Provider Family Medicine
DX: I10 Essential (primary) hypertension (principal)
CPT/HCPCS: 80048

== ENCOUNTER 2025-01-19 10:28 | Emergency (ER) | payer SELFPAY ==
[2025-01-19 10:37] VITALS: BP 190/101; PULSE 110; RESP 16; TEMP 36.6; O2SAT 97
[2025-01-19] MEDS: MORPHine IR 15 MG TAB PO (11:32)
[2025-01-19] MEDS: Acetaminophen 500 MG TAB 1000 MG PO (11:33)
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
[2025-01-19 12:49] VITALS: BP 212/85; BP 212/96; PULSE 112; PULSE 115; RESP 18; RESP 22; TEMP 36.9; O2SAT 98; O2SAT 99
[2025-01-19 13:04] LABS: Abs Immature Grans 0.07 10^3/uL (0.0-0.06); Absolute Basophil Count 0.07 10^3/uL (0.0-0.2); Absolute Lymphocyte Count 1.22 10^3/uL (1.2-3.4); Basophils % 0.4 %; Eosinophils % 0.1 %; HCT 44.5 % (40.0-50.0); HGB 15.6 g/dL (13.5-17.5); Immature Grans % 0.4 %; Lymphocytes % 7.3 %; MCH 28.7 pg (27.0-33.0); MCHC 35.1 % (32.0-36.0); MCV 82 fL (80-95); MPV 9.3 fL (8.0-11.0); Monocytes % 3.8 %; Platelet Count 322 10^3/uL (130-400); RBC 5.44 10^6/uL (4.36-5.78); RDW-SD 35.8 fL; WBC 16.66 10^3/uL (4.4-10.8)
[2025-01-19] MEDS: Insulin Glargine 100 UNITS/ML UNIT 11 UNITS SC (13:05)
[2025-01-19 13:08] LABS: Absolute Eosinophil Count 0.02 10^3/uL (0.0-0.7); Absolute Monocyte Count 0.63 10^3/uL (0.1-0.8); Absolute Neutrophil Count 14.66 10^3/uL (1.2-6.7)
[2025-01-19 13:21] LABS: ALT 43 U/L (16-63); AST 30 U/L (15-37); Alkaline Phosphatase 105 U/L (46-116); Anion Gap 6.2 mmol/L (3-11); BUN 33 mg/dL (7-18); Bilirubin, Total 0.3 mg/dL (0.2-1.0); CO2 25.8 mmol/L (21.0-32.0); CREATININE 1.6 mg/dL (0.70-1.30); Calcium 9.9 mg/dL (8.5-10.1); Chloride 102 mmol/L (98-107); Estimated GFR 52.49 (mL/min/1.73m2); Glucose 411 mg/dL (74-106); Magnesium 1.8 mg/dL (1.8-2.4); Potassium 4.8 mmol/L (3.5-5.1); Sodium 134 mmol/L (136-145); Total Protein 7.4 g/dL (6.4-8.2)
[2025-01-19 13:49] LABS: INR 0.9 (0.9-1.1); Prothrombin Time 9.3 sec (9.1-11.1)
== END 2025-01-19 15:39 | disposition short-term general hospital (02) ==
PROVIDERS: Emergency Provider Emergency Medicine; PCP Family Medicine
DX: S02.2XXA Fracture of nasal bones, initial encounter for closed fracture; Y04.8XXA Assault by other bodily force, initial encounter; W19.XXXA Unspecified fall, initial encounter; M54.2 Cervicalgia; E11.9 Type 2 diabetes mellitus without complications
CPT/HCPCS: 99285 ×2; 36416; 82962; 80053; 70450; 70486; 72125; 83735; 85025; 85610; J1815

== ENCOUNTER 2025-03-06 21:05 | Outpatient (REF) | payer MEDICAID, SELFPAY ==
[2025-03-06 16:09] LABS: Glucose >=1000 mg/dL (Negative)
[2025-03-06 16:45] LABS: RBC Negative HPF (0-2); WBC Negative HPF (0-5)
[2025-03-06 16:46] LABS: C & S Indicated? No
[2025-03-06 17:34] LABS: COMMENT (LAB VIEW ONLY) 75.72 mg/dL; Microalb ug/mg Crea 360.1 ug/mg Cr
[2025-03-07 13:10] LABS: Chlamydia Result Negative (Negative); GC Result Negative (Negative)
== END 2025-03-06 21:06 | disposition home or self-care (01) ==
LOC: NCHCN 21:05
PROVIDERS: PCP Student in an Organized Health Care Education/Training Program; Visit Provider Student in an Organized Health Care Education/Training Program
DX: R30.0 Dysuria (principal)
CPT/HCPCS: 87491; 87591; 81003; 81015; 82043; 82570